=== PATIENT | male | born 1960 | race African-American/Black ===

== ENCOUNTER 2023-04-27 15:44 | Inpatient (IN) ==
[2023-04-27 16:51] LABS: BILIRUBIN,URINE 2+ (NEGATIVE); BLOOD/HEMOGLOBIN,URINE 5+ (NEGATIVE); GLUCOSE, URINE NEGATIVE (NEGATIVE); KETONES,URINE NEGATIVE (NEGATIVE); LEUKOCYTE ESTERASE ,URINE 3+ (NEGATIVE); NITRITES,URINE NEGATIVE (NEGATIVE); PROTEIN,URINE 4+ (NEGATIVE); UROBILINOGEN,URINE 4+ (NORMAL)
[2023-04-27 17:21] LABS: APPEARANCE,URINE TURBID (CLEAR); COLOR,URINE DARK YELLOW (YELLOW)
[2023-04-27 17:22] LABS: BACTERIA,URINE 3+ /HPF (NEGATIVE); HYALINE CASTS, URINE RARE /LPF (NEGATIVE); RBC,URINE TNTC /HPF (0-3); SQUAMOUS EPITHELIAL CELL,UR RARE /HPF (NEGATIVE)
--- NOTE | 2023-04-27 17:42 | DR.EXTPAIN ---
HPI Time seen Time Seen by Provider: 04/27/23 17:41 PCP Primary Care Physician: Dr. Pool Complaint/Symptoms Chief Complaint Doctor Comments: Patient has a h/o prostate Cancer. He has h/o supra pubic catheter malfunction 3 weeks ago and presented to the ED. The catheter was replaced and patient presented 2 weeks ago because it had dislodged. A malave catheter was placed and patient presented today for evaluation. He has multiple complaints.He states that he has chronic intermittent pain in his left wrist and forearm. Patient states that it is not hurting anymore. Patient states that he has generalized abdominal pain.Patient denies:fever,n,v,sob,headache,back pain. Chief Complaint:: Pt reports pain in his left wrist and forearm that started this morning. Denies injury to the area. Pain is described as constant aching in nature. COVID-19 Coronavirus risk:travel/contact w/high risk person: No Has patient experienced Coronavirus symptoms: No Source History Provided: Patient and EMS Mode of arrival Mode of Arrival: EMS Timing Onset of Chief Complaint: 04/27/23 PMH PMH Past Medical History: Yes Past Medical History: Asthma, CVA, Hypertension and Kidney Stones Past Medical History Comment: BPH Past Surgical History: Yes Surgical History: Appendectomy and Cholecystectomy Past Surgical History Comment: suprapubic catheter Family History History of Family Medical Conditions: Yes Family Medical History: Hypertension Social History Does patient currently use any type of tobacco product: No Have you used tobacco products in the last 12 months: No Type of Tobacco Use: None Does any household member use tobacco: No Alcohol Use: None Do you use any recreational Drugs:: No Lives With: Family Lives Where: Home Travel Risk Coronavirus risk:travel/contact w/high risk person: No Has patient experienced Coronavirus symptoms: No Infectious screening In the last 2 months have you had wt loss of >10#?: NO Have you had fever, night sweats or hemotysis?: No Have you traveled outside the country in the last 6 months?: No Isolation: Standard ROS Review of Systems Constitutional: No Symptoms Reported Eyes: No Symptoms Reported ENTM: No Symptoms Reported Respiratoy: No Symptoms Reported Cardiovascular: No Symptoms Reported Gastrointestinal/Abdominal: Abdominal Pain (generalized) Genitourinary: Hematuria Neurological: No Symptoms Reported Musculoskeletal: No Symptoms Reported Integumentary: No Symptoms Reported Hematologic/Lymphatic: No Symptoms Reported Endocrine: No Symptoms Reported Psychiatric: No Symptoms Reported All Other Systems: Reviewed and Negative PE Vital Signs Vitals: Vital Signs Temperature 98.0 F Pulse Rate 103 Respiratory Rate 20 Blood Pressure 148/55 O2 Sat by Pulse Oximetry 97 General Limitations: No Limitations General Appearance: Alert and In No Apparent Distress Head Head Exam: Normal Inspection Eyes Eye exam: Normal Appearance ENT ENT Exam: Normal Exam Neck Neck Exam: Normal Inspection Chest Chest Inspection: Normal Inspection Respiratory Respiratory Exam: Normal Lung Sounds Bilat Respiratory Exam: Bilateral: Clear to Auscultation Cardiovascular Cardiovascular Exam: Regular Rate and Normal Rhythm Abdominal Exam Abdominal Exam: Normal Inspection, Normal Bowel Sounds, Soft and Other (Malave catheter is intact no excoriation at penis,no edema,no erythema) Extremities Extremities Exam: Normal Inspection Back Back Exam: Normal Inspection Neurological Neurological Exam: Alert, Oriented X3 and CN II-XII Intact Psychiatric Psychiatric Exam: Normal Affect and Normal Mood Skin Skin Exam: Warm, Dry, Intact and Normal Color MDM Differential Diagnosis Differential Diagnosis: Other (UTI,Cystitis,electrolyte, disorder,JANE) COURSE Treatment Treatment: Patient was brought to an exam room and iv access was initaited. Patient's cath U/A revealed TNTC RBCs/TNTC WBCs. Zosyn 3.375mg iv was ordered. Discussed case with Dr Pool who has accepted patient to his service. ROR Labs Reviewed Laboratory Results Reviewed?: Yes 04/27/23 17:55 04/27/23 17:55 Laboratory: WBC 18.2 X10^3/uL (3.6-10.0) H 04/27/23 17:55 RBC 3.43 X10^6/uL (4.7-6.0) L 04/27/23 17:55 Hgb 9.2 g/dL (13.5-18.0) L 04/27/23 17:55 Hct 28.3 % (42.0-54.0) L 04/27/23 17:55 MCV 82.4 fL (80.0-100.0) 04/27/23 17:55 MCH 26.9 pg (27.0-34.0) L 04/27/23 17:55 MCHC 32.7 g/dL (33.0-35.0) L 04/27/23 17:55 RDW 16.9 % (11.6-16.5) H 04/27/23 17:55 Plt Count 245 X10^3/uL (150.0-450.0) 04/27/23 17:55 MPV 7.7 fL (7.4-11.0) 04/27/23 17:55 Neut % (Auto) 87.1 % (42.0-75.0) H 04/27/23 17:55 Lymph % (Auto) 5.3 % (21.0-51.0) L 04/27/23 17:55 [place] % (Auto) 7.2 % (0.0-13.0) 04/27/23 17:55 Eos % (Auto) 0.2 % (0.9-2.9) L 04/27/23 17:55 Baso % (Auto) 0.2 % (0.2-1.0) 04/27/23 17:55 Neut # (Auto) 15.8 x10^3/uL (2.2-4.8) H 04/27/23 17:55 Lymph # (Auto) 1.0 X10^3/uL (1.3-2.9) L 04/27/23 17:55 [place] # (Auto) 1.3 x10^3/uL (0.3-0.8) H 04/27/23 17:55 Eos # (Auto) 0.0 x10^3/uL (0.0-0.2) 04/27/23 17:55 Baso # (Auto) 0.0 X10^3/uL (0.0-0.1) 04/27/23 17:55 Absolute Nucleated RBC 0.2 /100WBC 04/27/23 17:55 Sodium 130 mmol/L (136-145) L 04/27/23 17:55 Corrected Sodium 131 mmol/L (136-145) L 04/27/23 17:55 Potassium 3.3 mmol/L (3.5-5.1) L 04/27/23 17:55 Chloride 97 mmol/L (98-107) L 04/27/23 17:55 Carbon Dioxide 27.0 mmol/L (21-32) 04/27/23 17:55 BUN 26 mg/dL (7-18) H 04/27/23 17:55 Creatinine 1.52 mg/dL (0.70-1.30) H 04/27/23 17:55 Est GFR (MDRD) Af Amer 60 (>60) 04/27/23 17:55 Est GFR (MDRD) Non-Af 50 (>60) L 04/27/23 17:55 Glucose 132 mg/dL (65-99) H 04/27/23 17:55 Lactic Acid 1.8 mmol/L (0.4-2.0) 04/27/23 17:55 Calcium 8.5 mg/dL (8.5-10.1) 04/27/23 17:55 Corrected Calcium 10.0 mg/dL (8.5-10.1) 04/27/23 17:55 Total Bilirubin 1.50 mg/dL (0.2-1.0) H 04/27/23 17:55 AST 43 Units/L (15-37) H 04/27/23 17:55 ALT 21 Units/L (12-78) 04/27/23 17:55 Alkaline Phosphatase 115 Units/L (46-116) 04/27/23 17:55 C-Reactive Protein 195.30 mg/L (0-3.0) H 04/27/23 17:55 Total Protein 8.1 g/dL (6.4-8.2) 04/27/23 17:55 Albumin 2.1 g/dL (3.4-5.0) L 04/27/23 17:55 Globulin 6.0 g/dL (2.5-4.5) H 04/27/23 17:55 Albumin/Globulin Ratio 0.4 Ratio (1.1-2.1) L 04/27/23 17:55 Specimen Type Catherized urine 04/27/23 16:18 Urine Color Dark yellow (YELLOW) 04/27/23 16:18 Urine Appearance Turbid (CLEAR) 04/27/23 16:18 Urine pH 5.0 (5.0 - 8.0) 04/27/23 16:18 Ur Specific [employer] [place] 1.020 (1.000-1.030) 04/27/23 16:18 Urine Protein 4+ (NEGATIVE) 04/27/23 16:18 Urine Glucose (UA) Negative (NEGATIVE) 04/27/23 16:18 Urine Ketones Negative (NEGATIVE) 04/27/23 16:18 Urine Blood 5+ (NEGATIVE) 04/27/23 16:18 Urine Nitrite Negative (NEGATIVE) 04/27/23 16:18 Urine Bilirubin 2+ (NEGATIVE) 04/27/23 16:18 Urine Urobilinogen 4+ (NORMAL) 04/27/23 16:18 Ur Leukocyte Esterase 3+ (NEGATIVE) 04/27/23 16:18 Urine RBC Tntc /HPF (0-3) A 04/27/23 16:18 Urine WBC Tntc /HPF (0-5) A 04/27/23 16:18 Ur Squamous Epith Cells Rare /HPF (NEGATIVE) 04/27/23 16:18 Amorphous Sediment 2+ /HPF (NEGATIVE) 04/27/23 16:18 Urine Bacteria 3+ /HPF (NEGATIVE) 04/27/23 16:18 Hyaline Casts Rare /LPF (NEGATIVE) 04/27/23 16:18 Urine Mucus Few /HPF (NEGATIVE) 04/27/23 16:18 Ur Culture Indicated? Yes/culture set up 04/27/23 16:18 Opioid Opioid Risk Tool Age (Samir box if 16-45): No History of Preadolescent Sexual Abuse: No Total: 0 Total Score Risk Category: Low Risk Copyright: Miles FLORES predicting aberrant behaviors Discharge Plan Diagnosis Discharge Problem: Cystitis, Leukocytosis, JANE (acute kidney injury) Discharge Plan Patient Disposition: 09 ADMITTED INPATIENT Condition: Stable Prescriptions: No Action amlodipine 10 mg tablet 10 mg PO QDAY 30 Days Qty: 30 2RF carvedilol 25 mg tablet 25 mg PO BID 30 Days Qty: 60 3RF clonidine HCl 0.1 mg tablet 0.1 mg PO BID 30 Days Qty: 60 3RF oxycodone-acetaminophen [Percocet] 10-325 mg tablet 1 tab PO TID MDD 3 PRN (Reason: pain) 30 Days Qty: 90 0RF pregabalin 150 mg capsule 150 mg PO BID 30 Days Qty: 60 0RF potassium chloride 40 mEq/15 mL liquid 40 meq PO QDAY Qty: 45 0RF Health Concerns: Post Hospitalization: new medications and changes needed to prevent readmission or further decline. Pt educated and given instructions on all concerns. Plan of Treatment: Continue with present treatment and follow up plan. Pt is to keep follow up appointment as instructed and take medications as ordered. Orders to Discharge Patient Discharge Orders: Transfer (Routine); Ordered 04/27/23 Ordered By: Amina Henning Follow ups/Referrals Follow ups/Referrals: Lonnie Pool [Primary Care Provider] - 3 days Instructions Stand Alone Forms: Post Hospital Follow Up Care
[2023-04-27 18:07] LABS: BASOPHILS % (AUTO) 0.2 % (0.2-1.0); EOSINOPHILS % (AUTO) 0.2 % (0.9-2.9); HEMATOCRIT 28.3 % (42.0-54.0); HEMOGLOBIN 9.2 g/dL (13.5-18.0); LYMPHOCYTES % (AUTO) 5.3 % (21.0-51.0); MEAN CORPUSCULAR HEMOGLOBIN 26.9 pg (27.0-34.0); MEAN CORPUSCULAR HGB CONC 32.7 g/dL (33.0-35.0); MEAN CORPUSCULAR VOLUME 82.4 fL (80.0-100.0); MEAN PLATELET VOLUME 7.7 fL (7.4-11.0); MONOCYTES # (AUTO) 1.3 x10^3/uL (0.3-0.8); MONOCYTES % (AUTO) 7.2 % (0.0-13.0); NEUTROPHILS # (AUTO) 15.8 x10^3/uL (2.2-4.8); NEUTROPHILS % (AUTO) 87.1 % (42.0-75.0); PLATELET COUNT 245 X10^3/uL (150.0-450.0); RED BLOOD COUNT 3.43 X10^6/uL (4.7-6.0); RED CELL DISTRIBUTION WIDTH 16.9 % (11.6-16.5); WHITE BLOOD COUNT 18.2 X10^3/uL (3.6-10.0)
[2023-04-27 18:17] LABS: ALBUMIN 2.1 g/dL (3.4-5.0); CALCIUM 8.5 mg/dL (8.5-10.1); CREATININE 1.52 mg/dL (0.70-1.30); POTASSIUM 3.3 mmol/L (3.5-5.1); TOTAL PROTEIN 8.1 g/dL (6.4-8.2)
[2023-04-27] MEDS ORDERED: ZOSYN VIAL 3.375 GRAMS IV ONE (18:38)
[2023-04-27] MEDS ORDERED: NS 100 ML IV 100 ML ONE (18:38)
[2023-04-27] MEDS: ZOSYN VIAL 3.375 GRAMS 3.375 G in NS 100 ML IV 100 ML IV SCH ×2 (18:45→21:35)
[2023-04-27] MEDS ORDERED: NS 1,000 ML IV 1,000 ML IV ONE (19:07)
[2023-04-27] MEDS ORDERED: NS 1,000 ML IV 1,000 ML ONE (19:17)
[2023-04-27] MEDS ORDERED: NS 1,000 ML IV 1,000 ML IV SCH (20:00)
[2023-04-27 20:29] VITALS: BMI 22.9
[2023-04-27] MEDS ORDERED: CONSULT PHARMACY - POTASSIUM & MAGNESIUM XX SCH (21:00)
[2023-04-27] MEDS: CATAPRES TAB 0.1 MG PO SCH (21:31)
[2023-04-27] MEDS: PERCOCET TAB 5/325 MG PO PRN (21:31)
[2023-04-27] MEDS: LYRICA CAP 150 mg PO SCH (21:32)
[2023-04-27] MEDS: COREG TAB 25 MG PO SCH (21:32)
[2023-04-27] MEDS: K-DUR TAB 20 MEQ PO SCH (21:39)
[2023-04-28] MEDS: K-DUR TAB 20 MEQ PO SCH (00:02)
[2023-04-28] MEDS: PERCOCET TAB 5/325 MG PO PRN (02:38)
[2023-04-28] MEDS: ZOSYN VIAL 3.375 GRAMS 3.375 G in NS 100 ML IV 100 ML IV SCH ×3 (05:27→21:07)
[2023-04-28 05:36] LABS: ALANINE AMINOTRANSFERASE 18 Units/L (12-78); ALBUMIN 1.8 g/dL (3.4-5.0); ALKALINE PHOSPHATASE 92 Units/L (46-116); ASPARTATE AMINO TRANSFERASE 30 Units/L (15-37); BLOOD UREA NITROGEN 25 mg/dL (7-18); CARBON DIOXIDE 25.3 mmol/L (21-32); CHLORIDE 98 mmol/L (98-107); COR CA(FOR HYPOALB) 9.8 mg/dL (8.5-10.1); CREATININE 1.45 mg/dL (0.70-1.30); GLUCOSE 110 mg/dL (65-99); MAGNESIUM 2.2 mg/dL (2.0-2.9); POTASSIUM 3.2 mmol/L (3.5-5.1); SODIUM 131 mmol/L (136-145); TOTAL PROTEIN 7.1 g/dL (6.4-8.2); eGFR NON BLACK RACES 52 (>60)
[2023-04-28 05:38] LABS: BASOPHILS % (AUTO) 0.2 % (0.2-1.0); EOSINOPHILS # (AUTO) 0.1 x10^3/uL (0.0-0.2); EOSINOPHILS % (AUTO) 0.4 % (0.9-2.9); HEMATOCRIT 25.2 % (42.0-54.0); HEMOGLOBIN 8.3 g/dL (13.5-18.0); LYMPHOCYTES # (AUTO) 1.4 X10^3/uL (1.3-2.9); LYMPHOCYTES % (AUTO) 9.4 % (21.0-51.0); MEAN CORPUSCULAR HEMOGLOBIN 27.2 pg (27.0-34.0); MEAN CORPUSCULAR HGB CONC 32.9 g/dL (33.0-35.0); MEAN CORPUSCULAR VOLUME 82.7 fL (80.0-100.0); MEAN PLATELET VOLUME 7.7 fL (7.4-11.0); MONOCYTES # (AUTO) 1.5 x10^3/uL (0.3-0.8); MONOCYTES % (AUTO) 9.9 % (0.0-13.0); NEUTROPHILS # (AUTO) 11.9 x10^3/uL (2.2-4.8); NEUTROPHILS % (AUTO) 80.1 % (42.0-75.0); PLATELET COUNT 199 X10^3/uL (150.0-450.0); RED BLOOD COUNT 3.05 X10^6/uL (4.7-6.0); WHITE BLOOD COUNT 14.9 X10^3/uL (3.6-10.0)
[2023-04-28] MEDS ORDERED: CONSULT PHARMACY - POTASSIUM & MAGNESIUM XX SCH ×2 (06:00→07:00)
[2023-04-28] MEDS: LYRICA CAP 150 mg PO SCH ×2 (08:52→21:07)
[2023-04-28] MEDS: CATAPRES TAB 0.1 MG PO SCH ×2 (08:52→21:30)
[2023-04-28] MEDS: NORVASC TAB 10 MG PO SCH (08:52)
[2023-04-28] MEDS: COREG TAB 25 MG PO SCH ×2 (08:52→21:30)
[2023-04-28] MEDS ORDERED: POTASSIUM CHLORIDE LIQ PO SCH (09:00)
[2023-04-28] MEDS ORDERED: K-DUR TAB 20 MEQ PO SCH (09:00)
[2023-04-28] MEDS: NS + KCL 20 MEQ/L 1,000 ML IV SCH (09:31)
[2023-04-29] MEDS: NS + KCL 20 MEQ/L 1,000 ML IV SCH ×2 (03:00→13:17)
[2023-04-29] MEDS: ZOSYN VIAL 3.375 GRAMS 3.375 G in NS 100 ML IV 100 ML IV SCH ×3 (04:59→21:19)
[2023-04-29] MEDS: PERCOCET TAB 5/325 MG PO PRN (05:00)
[2023-04-29 05:55] LABS: BASOPHILS % (AUTO) 0.2 % (0.2-1.0); EOSINOPHILS # (AUTO) 0.1 x10^3/uL (0.0-0.2); EOSINOPHILS % (AUTO) 0.4 % (0.9-2.9); HEMATOCRIT 23.1 % (42.0-54.0); HEMOGLOBIN 7.6 g/dL (13.5-18.0); LYMPHOCYTES # (AUTO) 1.4 X10^3/uL (1.3-2.9); LYMPHOCYTES % (AUTO) 9.9 % (21.0-51.0); MEAN CORPUSCULAR HEMOGLOBIN 27.2 pg (27.0-34.0); MEAN CORPUSCULAR HGB CONC 32.8 g/dL (33.0-35.0); MEAN CORPUSCULAR VOLUME 82.9 fL (80.0-100.0); MEAN PLATELET VOLUME 7.9 fL (7.4-11.0); MONOCYTES # (AUTO) 1.5 x10^3/uL (0.3-0.8); MONOCYTES % (AUTO) 10.7 % (0.0-13.0); NEUTROPHILS # (AUTO) 11.3 x10^3/uL (2.2-4.8); NEUTROPHILS % (AUTO) 78.8 % (42.0-75.0); PLATELET COUNT 229 X10^3/uL (150.0-450.0); RED BLOOD COUNT 2.79 X10^6/uL (4.7-6.0); RED CELL DISTRIBUTION WIDTH 17.1 % (11.6-16.5); WHITE BLOOD COUNT 14.3 X10^3/uL (3.6-10.0)
[2023-04-29 06:10] LABS: ALANINE AMINOTRANSFERASE 10 Units/L (12-78); ALBUMIN 1.5 g/dL (3.4-5.0); ALKALINE PHOSPHATASE 76 Units/L (46-116); ASPARTATE AMINO TRANSFERASE 21 Units/L (15-37); BLOOD UREA NITROGEN 15 mg/dL (7-18); CALCIUM 7.8 mg/dL (8.5-10.1); CARBON DIOXIDE 20.7 mmol/L (21-32); CHLORIDE 106 mmol/L (98-107); COR CA(FOR HYPOALB) 9.8 mg/dL (8.5-10.1); CREATININE 1.07 mg/dL (0.70-1.30); GLUCOSE 88 mg/dL (65-99); SODIUM 136 mmol/L (136-145); TOTAL PROTEIN 6.6 g/dL (6.4-8.2); eGFR NON BLACK RACES > 60 (>60)
--- NOTE | 2023-04-29 06:38 | DR.H&P ---
H&P History & Physical for Day of: H&P Date: 04/28/23 Chief Complaint Chief Complaint: Weakness Dysuria Allergies Allergies Allergy/AdvReac Type Severity Reaction Status Date / Time No Known Allergies Allergy Verified 03/28/23 21:27 History of Present Illness History of Present Illness: Patient is a 62-year-old male with a past medical history of CVA, neuropathy, prostate/penile cancer? with malave catheter presenting with weakness and dysuria for the past 2-3 days. Reports discoloration in urine in Malave bag. Denies fevers, chills. Labs/imaging: WBC 14.9, hemoglobin 8.3, platelets 199, sodium 131, potassium 3.2, creatinine 1.45, glucose 110, UA positive, urine/blood culture pending. Patient was admitted for acute cystitis. He is currently receiving IV fluids normal saline at 80 mL/h. IV antibiotics Zosyn. Will restart home medications. Otherwise continue with current treatment plan. Continue to closely monitor and follow-up labs/imaging. Past Medical History Past Medical History: Asthma, CVA, Hypertension and Kidney Stones Past Surgical History Surgical History: Appendectomy and Cholecystectomy Family History Family Medical History: Hypertension Social History Does patient currently use any type of tobacco product: No Have you used tobacco products in the last 12 months: No Type of Tobacco Use: None Does any household member use tobacco: No Alcohol Use: None Drug Use: None Labs 04/29/23 05:14 04/29/23 05:14 Labs: 04/27/23 17:55 Blood Blood Culture Gram Stain - Final 04/27/23 16:10 Blood Blood Culture Gram Stain - Final 04/27/23 16:18 Urine,Catheterized Urine Culture - Preliminary Laboratory WBC 14.3 X10^3/uL (3.6-10.0) H 04/29/23 05:14 RBC 2.79 X10^6/uL (4.7-6.0) L 04/29/23 05:14 Hgb 7.6 g/dL (13.5-18.0) L 04/29/23 05:14 Hct 23.1 % (42.0-54.0) L 04/29/23 05:14 MCV 82.9 fL (80.0-100.0) 04/29/23 05:14 MCH 27.2 pg (27.0-34.0) 04/29/23 05:14 MCHC 32.8 g/dL (33.0-35.0) L 04/29/23 05:14 RDW 17.1 % (11.6-16.5) H 04/29/23 05:14 Plt Count 229 X10^3/uL (150.0-450.0) 04/29/23 05:14 MPV 7.9 fL (7.4-11.0) 04/29/23 05:14 Neut % (Auto) 78.8 % (42.0-75.0) H 04/29/23 05:14 Lymph % (Auto) 9.9 % (21.0-51.0) L 04/29/23 05:14 [place] % (Auto) 10.7 % (0.0-13.0) 04/29/23 05:14 Eos % (Auto) 0.4 % (0.9-2.9) L 04/29/23 05:14 Baso % (Auto) 0.2 % (0.2-1.0) 04/29/23 05:14 Neut # (Auto) 11.3 x10^3/uL (2.2-4.8) H 04/29/23 05:14 Lymph # (Auto) 1.4 X10^3/uL (1.3-2.9) 04/29/23 05:14 [place] # (Auto) 1.5 x10^3/uL (0.3-0.8) H 04/29/23 05:14 Eos # (Auto) 0.1 x10^3/uL (0.0-0.2) 04/29/23 05:14 Baso # (Auto) 0.0 X10^3/uL (0.0-0.1) 04/29/23 05:14 Absolute Nucleated RBC 0.0 /100WBC 04/29/23 05:14 Sodium 136 mmol/L (136-145) 04/29/23 05:14 Corrected Sodium TNP 04/29/23 05:14 Potassium 4.0 mmol/L (3.5-5.1) 04/29/23 05:14 Chloride 106 mmol/L (98-107) 04/29/23 05:14 Carbon Dioxide 20.7 mmol/L (21-32) L 04/29/23 05:14 BUN 15 mg/dL (7-18) 04/29/23 05:14 Creatinine 1.07 mg/dL (0.70-1.30) 04/29/23 05:14 Est GFR (MDRD) Af Amer > 60 (>60) 04/29/23 05:14 Est GFR (MDRD) Non-Af > 60 (>60) 04/29/23 05:14 Glucose 88 mg/dL (65-99) 04/29/23 05:14 Lactic Acid 1.8 mmol/L (0.4-2.0) 04/27/23 17:55 Calcium 7.8 mg/dL (8.5-10.1) L 04/29/23 05:14 Corrected Calcium 9.8 mg/dL (8.5-10.1) 04/29/23 05:14 Magnesium 2.2 mg/dL (2.0-2.9) 04/28/23 04:55 Total Bilirubin 1.10 mg/dL (0.2-1.0) H 04/29/23 05:14 AST 21 Units/L (15-37) 04/29/23 05:14 ALT 10 Units/L (12-78) L 04/29/23 05:14 Alkaline Phosphatase 76 Units/L (46-116) 04/29/23 05:14 C-Reactive Protein 195.30 mg/L (0-3.0) H 04/27/23 17:55 Total Protein 6.6 g/dL (6.4-8.2) 04/29/23 05:14 Albumin 1.5 g/dL (3.4-5.0) L 04/29/23 05:14 Globulin 5.1 g/dL (2.5-4.5) H 04/29/23 05:14 Albumin/Globulin Ratio 0.3 Ratio (1.1-2.1) L 04/29/23 05:14 Specimen Type Catherized urine 04/27/23 16:18 Urine Color Dark yellow (YELLOW) 04/27/23 16:18 Urine Appearance Turbid (CLEAR) 04/27/23 16:18 Urine pH 5.0 (5.0 - 8.0) 04/27/23 16:18 Ur Specific [place] 1.020 (1.000-1.030) 04/27/23 16:18 Urine Protein 4+ (NEGATIVE) 04/27/23 16:18 Urine Glucose (UA) Negative (NEGATIVE) 04/27/23 16:18 Urine Ketones Negative (NEGATIVE) 04/27/23 16:18 Urine Blood 5+ (NEGATIVE) 04/27/23 16:18 Urine Nitrite Negative (NEGATIVE) 04/27/23 16:18 Urine Bilirubin 2+ (NEGATIVE) 04/27/23 16:18 Urine Urobilinogen 4+ (NORMAL) 04/27/23 16:18 Ur Leukocyte Esterase 3+ (NEGATIVE) 04/27/23 16:18 Urine RBC Tntc /HPF (0-3) A 04/27/23 16:18 Urine WBC Tntc /HPF (0-5) A 04/27/23 16:18 Ur Squamous Epith Cells Rare /HPF (NEGATIVE) 04/27/23 16:18 Amorphous Sediment 2+ /HPF (NEGATIVE) 04/27/23 16:18 Urine Bacteria 3+ /HPF (NEGATIVE) 04/27/23 16:18 Hyaline Casts Rare /LPF (NEGATIVE) 04/27/23 16:18 Urine Mucus Few /HPF (NEGATIVE) 04/27/23 16:18 Ur Culture Indicated? Yes/culture set up 04/27/23 16:18 Review of Systems Constitutional: Weakness Eyes: No Symptoms Reported ENT: No Symptoms Reported Respiratory: No Symptoms Reported Cardiovascular: No Symptoms Reported Gastrointestinal: No Symptoms Reported Genitourinary: Dysuria and Other (malave catheter) Musculoskeletal: No Symptoms Reported Skin: No Symptoms Reported Neurological: No Symptoms Reported Physical Exam Vital Signs: Vital Signs Temperature 98.1 F Temperature 98.7 F Pulse Rate [Left] 93 Pulse Rate [Left] 107 Respiratory Rate 20 Respiratory Rate 20 Respiratory Rate 20 Blood Pressure [Right Arm] 139/64 Blood Pressure [Right Arm] 127/58 O2 Sat by Pulse Oximetry 100 O2 Sat by Pulse Oximetry 100 Oriented: Normal Eyes: Normal Ear: Normal Nose: Normal Throat: Normal Respiratory: Clear Throughout Cardiovascular: Normal : Dysuria Auscultation: Bowel Sounds: Normal Palpation: Normal Tenderness: Normal Skin: Normal Musculoskeletal: Normal Psychiatric: Normal Mood Description: Calm and Appropriate Affect: Normal Speech Pattern: Clear and Appropriate Assessment/Plan (1) Cystitis: Narrative Support Text: IV Zosyn Urine culture pending Status: Acute (2) Acute urinary retention: Status: Acute (3) Leukocytosis: Status: Acute Review H&P Reviewed: Yes Patient was examined?: Yes
[2023-04-29] MEDS: LYRICA CAP 150 mg PO SCH ×2 (08:50→20:19)
[2023-04-29] MEDS: COREG TAB 25 MG PO SCH (08:51)
[2023-04-29] MEDS: CATAPRES TAB 0.1 MG PO SCH (08:51)
[2023-04-29] MEDS: NORVASC TAB 10 MG PO SCH (08:51)
[2023-04-29] MEDS ORDERED: ATIVAN INJ 2 MG VIAL IVP ONE (17:10)
[2023-04-29] MEDS ORDERED: ATIVAN INJ 2 MG VIAL ONE (17:19)
[2023-04-29] MEDS ORDERED: DILAUDID INJ ONE (17:23)
[2023-04-29 18:04] LABS: BILIRUBIN,URINE NEGATIVE (NEGATIVE); BLOOD/HEMOGLOBIN,URINE 5+ (NEGATIVE); GLUCOSE, URINE NEGATIVE (NEGATIVE); KETONES,URINE NEGATIVE (NEGATIVE); LEUKOCYTE ESTERASE ,URINE 3+ (NEGATIVE); NITRITES,URINE NEGATIVE (NEGATIVE); PROTEIN,URINE 3+ (NEGATIVE); UROBILINOGEN,URINE 3+ (NORMAL)
[2023-04-29 18:29] LABS: APPEARANCE,URINE CLOUDY (CLEAR); COLOR,URINE BLOODY (YELLOW)
[2023-04-29 18:30] LABS: BACTERIA,URINE NEGATIVE /HPF (NEGATIVE); RBC,URINE TNTC /HPF (0-3); SQUAMOUS EPITHELIAL CELL,UR NEGATIVE /HPF (NEGATIVE); URIC ACID CRYSTALS,URINE MODERATE /HPF (NEGATIVE)
[2023-04-30] MEDS: CATAPRES TAB 0.1 MG PO SCH ×3 (00:02→20:03)
[2023-04-30] MEDS: COREG TAB 25 MG PO SCH ×3 (00:03→20:04)
[2023-04-30] MEDS: ZOSYN VIAL 3.375 GRAMS 3.375 G in NS 100 ML IV 100 ML IV SCH (05:00)
[2023-04-30] MEDS: NS + KCL 20 MEQ/L 1,000 ML IV SCH ×2 (05:01→20:03)
[2023-04-30 06:18] LABS: BASOPHILS # (AUTO) 0.1 X10^3/uL (0.0-0.1); BASOPHILS % (AUTO) 0.6 % (0.2-1.0); EOSINOPHILS # (AUTO) 0.1 x10^3/uL (0.0-0.2); EOSINOPHILS % (AUTO) 0.4 % (0.9-2.9); HEMATOCRIT 24.2 % (42.0-54.0); HEMOGLOBIN 7.9 g/dL (13.5-18.0); LYMPHOCYTES # (AUTO) 1.3 X10^3/uL (1.3-2.9); LYMPHOCYTES % (AUTO) 9.7 % (21.0-51.0); MEAN CORPUSCULAR HEMOGLOBIN 27.4 pg (27.0-34.0); MEAN CORPUSCULAR HGB CONC 32.8 g/dL (33.0-35.0); MEAN CORPUSCULAR VOLUME 83.5 fL (80.0-100.0); MEAN PLATELET VOLUME 7.9 fL (7.4-11.0); MONOCYTES # (AUTO) 1.1 x10^3/uL (0.3-0.8); NEUTROPHILS # (AUTO) 10.8 x10^3/uL (2.2-4.8); NEUTROPHILS % (AUTO) 81.3 % (42.0-75.0); PLATELET COUNT 225 X10^3/uL (150.0-450.0); RED CELL DISTRIBUTION WIDTH 17.8 % (11.6-16.5); WHITE BLOOD COUNT 13.4 X10^3/uL (3.6-10.0)
[2023-04-30 06:42] LABS: ALANINE AMINOTRANSFERASE 15 Units/L (12-78); ALBUMIN 1.6 g/dL (3.4-5.0); ALKALINE PHOSPHATASE 127 Units/L (46-116); ASPARTATE AMINO TRANSFERASE 22 Units/L (15-37); BLOOD UREA NITROGEN 10 mg/dL (7-18); CALCIUM 8.1 mg/dL (8.5-10.1); CARBON DIOXIDE 21.2 mmol/L (21-32); CHLORIDE 107 mmol/L (98-107); CREATININE 1.15 mg/dL (0.70-1.30); GLUCOSE 107 mg/dL (65-99); SODIUM 136 mmol/L (136-145); TOTAL PROTEIN 6.8 g/dL (6.4-8.2); eGFR NON BLACK RACES > 60 (>60)
[2023-04-30] MEDS ORDERED: PHARMACY CONSULT - VANCOMYCIN XX SCH ×2 (09:00)
[2023-04-30] MEDS: LYRICA CAP 150 mg PO SCH ×2 (09:14→20:03)
[2023-04-30] MEDS: NORVASC TAB 10 MG PO SCH (09:15)
[2023-04-30] MEDS: VANCOMYCIN IV *PREMIX 1 G/200 ML BAG 1 G/200 ML PIGGYBACK IV SCH ×2 (09:15→20:03)
--- NOTE | 2023-04-30 16:42 | PCM.PROG ---
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 This morning he is resting comfortably in bed. No acute events overnight. Labs/imaging: WBC 14.3, hemoglobin 7.6, platelets 229, sodium 136, potassium 4.0, creatinine 1.07, glucose 88, Urine culture no growth to date, Blood culture positive for gram positive cocci. Will continue IV fluids normal saline at 80 mL/h. IV antibiotics Zosyn. Home medications have been resumed. Follow up blood cultures. Otherwise continue with current treatment plan. Continue to closely monitor and follow-up labs/imaging. Past Medical Family Social History Allergies: Allergies No Known Allergies Allergy (Verified 03/28/23 21:27) Review of Systems ROS changes noted: see HPI Vital Signs and I&O's Vital Signs: Vital Signs Temperature 99.1 F Pulse Rate [Left] 95 Respiratory Rate 20 Blood Pressure [Right Arm] 132/59 O2 Sat by Pulse Oximetry 99 Intake and Output: Intake & Output 04/27/23 04/28/23 04/29/23 04/30/23 23:59 23:59 23:59 23:59 Intake Total 220 / 220 172 / 172 4225 / 4225 220 / 220 Output Total 100 / 100 400 / 400 110 / 110 350 / 350 Balance 120 / 120 -228 / -228 4115 / 4115 -130 / -130 Physical Exam Oriented: Normal Eyes: Normal Ear: Normal Nose: Normal Throat: Normal Respiratory: Normal Cardiovascular: Normal : Dysuria Auscultation: Bowel Sounds: Normal Tenderness: Normal Skin: Normal Musculoskeletal: Normal Psychiatric: Normal Mood Description: Calm and Appropriate Affect: Normal Speech Pattern: Clear and Appropriate Laboratory and Diagnostics 04/30/23 05:05 04/30/23 05:05 Labs: 04/27/23 17:55 Blood Blood Culture Gram Stain - Final 04/27/23 17:55 Blood Blood Culture - Final Staphylococcus Lugdunesis Mrs 04/27/23 16:10 Blood Blood Culture Gram Stain - Final 04/27/23 16:10 Blood Blood Culture - Final Staphylococcus Lugdunesis Mrs 04/27/23 16:18 Urine,Catheterized Urine Culture - Final Laboratory WBC 13.4 X10^3/uL (3.6-10.0) H 04/30/23 05:05 RBC 2.90 X10^6/uL (4.7-6.0) L 04/30/23 05:05 Hgb 7.9 g/dL (13.5-18.0) L 04/30/23 05:05 Hct 24.2 % (42.0-54.0) L 04/30/23 05:05 MCV 83.5 fL (80.0-100.0) 04/30/23 05:05 MCH 27.4 pg (27.0-34.0) 04/30/23 05:05 MCHC 32.8 g/dL (33.0-35.0) L 04/30/23 05:05 RDW 17.8 % (11.6-16.5) H 04/30/23 05:05 Plt Count 225 X10^3/uL (150.0-450.0) 04/30/23 05:05 MPV 7.9 fL (7.4-11.0) 04/30/23 05:05 Neut % (Auto) 81.3 % (42.0-75.0) H 04/30/23 05:05 Lymph % (Auto) 9.7 % (21.0-51.0) L 04/30/23 05:05 [place] % (Auto) 8.0 % (0.0-13.0) 04/30/23 05:05 Eos % (Auto) 0.4 % (0.9-2.9) L 04/30/23 05:05 Baso % (Auto) 0.6 % (0.2-1.0) 04/30/23 05:05 Neut # (Auto) 10.8 x10^3/uL (2.2-4.8) H 04/30/23 05:05 Lymph # (Auto) 1.3 X10^3/uL (1.3-2.9) 04/30/23 05:05 [place] # (Auto) 1.1 x10^3/uL (0.3-0.8) H 04/30/23 05:05 Eos # (Auto) 0.1 x10^3/uL (0.0-0.2) 04/30/23 05:05 Baso # (Auto) 0.1 X10^3/uL (0.0-0.1) 04/30/23 05:05 Absolute Nucleated RBC 0.0 /100WBC 04/30/23 05:05 Sodium 136 mmol/L (136-145) 04/30/23 05:05 Corrected Sodium TNP 04/30/23 05:05 Potassium 4.0 mmol/L (3.5-5.1) 04/30/23 05:05 Chloride 107 mmol/L (98-107) 04/30/23 05:05 Carbon Dioxide 21.2 mmol/L (21-32) 04/30/23 05:05 BUN 10 mg/dL (7-18) 04/30/23 05:05 Creatinine 1.15 mg/dL (0.70-1.30) 04/30/23 05:05 Est GFR (MDRD) Af Amer > 60 (>60) 04/30/23 05:05 Est GFR (MDRD) Non-Af > 60 (>60) 04/30/23 05:05 Glucose 107 mg/dL (65-99) H 04/30/23 05:05 Lactic Acid 1.8 mmol/L (0.4-2.0) 04/27/23 17:55 Calcium 8.1 mg/dL (8.5-10.1) L 04/30/23 05:05 Corrected Calcium 10.0 mg/dL (8.5-10.1) 04/30/23 05:05 Magnesium 2.2 mg/dL (2.0-2.9) 04/28/23 04:55 Total Bilirubin 0.80 mg/dL (0.2-1.0) 04/30/23 05:05 AST 22 Units/L (15-37) 04/30/23 05:05 ALT 15 Units/L (12-78) 04/30/23 05:05 Alkaline Phosphatase 127 Units/L (46-116) H 04/30/23 05:05 C-Reactive Protein 195.30 mg/L (0-3.0) H 04/27/23 17:55 Total Protein 6.8 g/dL (6.4-8.2) 04/30/23 05:05 Albumin 1.6 g/dL (3.4-5.0) L 04/30/23 05:05 Globulin 5.2 g/dL (2.5-4.5) H 04/30/23 05:05 Albumin/Globulin Ratio 0.3 Ratio (1.1-2.1) L 04/30/23 05:05 Specimen Type Catherized urine 04/29/23 17:30 Urine Color Bloody (YELLOW) 04/29/23 17:30 Urine Appearance Cloudy (CLEAR) 04/29/23 17:30 Urine pH 5.0 (5.0 - 8.0) 04/29/23 17:30 Ur Specific [place] 1.020 (1.000-1.030) 04/29/23 17:30 Urine Protein 3+ (NEGATIVE) 04/29/23 17:30 Urine Glucose (UA) Negative (NEGATIVE) 04/29/23 17:30 Urine Ketones Negative (NEGATIVE) 04/29/23 17:30 Urine Blood 5+ (NEGATIVE) 04/29/23 17:30 Urine Nitrite Negative (NEGATIVE) 04/29/23 17:30 Urine Bilirubin Negative (NEGATIVE) 04/29/23 17:30 Urine Urobilinogen 3+ (NORMAL) 04/29/23 17:30 Ur Leukocyte Esterase 3+ (NEGATIVE) 04/29/23 17:30 Urine RBC Tntc /HPF (0-3) A 04/29/23 17:30 Urine WBC 3-5 /HPF (0-5) 04/29/23 17:30 Ur Squamous Epith Cells Negative /HPF (NEGATIVE) 04/29/23 17:30 Uric Acid Crystals Moderate /HPF (NEGATIVE) 04/29/23 17:30 Amorphous Sediment 1+ /HPF (NEGATIVE) 04/29/23 17:30 Urine Bacteria Negative /HPF (NEGATIVE) 04/29/23 17:30 Hyaline Casts Rare /LPF (NEGATIVE) 04/27/23 16:18 Urine Mucus Few /HPF (NEGATIVE) 04/27/23 16:18 Ur Culture Indicated? No/not indicated 04/29/23 17:30 Plan (1) Cystitis: Status: Acute (2) Acute urinary retention: Status: Acute (3) Leukocytosis: Status: Acute
--- NOTE | 2023-04-30 17:05 | PCM.PROG ---
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 This morning was observed at bedside. He was eating breakfast. No acute events overnight. Labs/imaging: WBC 13.4, hemoglobin 7.9, platelets 225, sodium 136, potassium 4.0, creatinine 1.15, glucose 107, Urine culture no growth to date, Blood culture positive for Will continue IV fluids normal saline at 80 mL/h. IV antibiotics Zosyn. Home medications have been resumed. Follow up blood cultures. Otherwise continue with current treatment plan. Continue to closely monitor and follow-up labs/imaging. Past Medical Family Social History Allergies: Allergies No Known Allergies Allergy (Verified 03/28/23 21:27) Vital Signs and I&O's Intake and Output: Intake & Output 04/27/23 04/28/23 04/29/23 04/30/23 23:59 23:59 23:59 23:59 Intake Total 220 / 220 172 / 172 4225 / 4225 640 / 640 Output Total 100 / 100 400 / 400 110 / 110 750 / 750 Balance 120 / 120 -228 / -228 4115 / 4115 -110 / -110 Physical Exam Oriented: Normal Eyes: Normal Ear: Normal Nose: Normal Throat: Normal Respiratory: Normal Cardiovascular: Normal : Dysuria Auscultation: Bowel Sounds: Normal Tenderness: Normal Skin: Normal Musculoskeletal: Normal Psychiatric: Normal Mood Description: Calm and Appropriate Affect: Normal Speech Pattern: Clear and Appropriate Laboratory and Diagnostics 04/30/23 05:05 04/30/23 05:05 Labs: 04/27/23 17:55 Blood Blood Culture Gram Stain - Final 04/27/23 17:55 Blood Blood Culture - Final Staphylococcus Lugdunesis Mrs 04/27/23 16:10 Blood Blood Culture Gram Stain - Final 04/27/23 16:10 Blood Blood Culture - Final Staphylococcus Lugdunesis Mrs 04/27/23 16:18 Urine,Catheterized Urine Culture - Final Laboratory WBC 13.4 X10^3/uL (3.6-10.0) H 04/30/23 05:05 RBC 2.90 X10^6/uL (4.7-6.0) L 04/30/23 05:05 Hgb 7.9 g/dL (13.5-18.0) L 04/30/23 05:05 Hct 24.2 % (42.0-54.0) L 04/30/23 05:05 MCV 83.5 fL (80.0-100.0) 04/30/23 05:05 MCH 27.4 pg (27.0-34.0) 04/30/23 05:05 MCHC 32.8 g/dL (33.0-35.0) L 04/30/23 05:05 RDW 17.8 % (11.6-16.5) H 04/30/23 05:05 Plt Count 225 X10^3/uL (150.0-450.0) 04/30/23 05:05 MPV 7.9 fL (7.4-11.0) 04/30/23 05:05 Neut % (Auto) 81.3 % (42.0-75.0) H 04/30/23 05:05 Lymph % (Auto) 9.7 % (21.0-51.0) L 04/30/23 05:05 [place] % (Auto) 8.0 % (0.0-13.0) 04/30/23 05:05 Eos % (Auto) 0.4 % (0.9-2.9) L 04/30/23 05:05 Baso % (Auto) 0.6 % (0.2-1.0) 04/30/23 05:05 Neut # (Auto) 10.8 x10^3/uL (2.2-4.8) H 04/30/23 05:05 Lymph # (Auto) 1.3 X10^3/uL (1.3-2.9) 04/30/23 05:05 [place] # (Auto) 1.1 x10^3/uL (0.3-0.8) H 04/30/23 05:05 Eos # (Auto) 0.1 x10^3/uL (0.0-0.2) 04/30/23 05:05 Baso # (Auto) 0.1 X10^3/uL (0.0-0.1) 04/30/23 05:05 Absolute Nucleated RBC 0.0 /100WBC 04/30/23 05:05 Sodium 136 mmol/L (136-145) 04/30/23 05:05 Corrected Sodium TNP 04/30/23 05:05 Potassium 4.0 mmol/L (3.5-5.1) 04/30/23 05:05 Chloride 107 mmol/L (98-107) 04/30/23 05:05 Carbon Dioxide 21.2 mmol/L (21-32) 04/30/23 05:05 BUN 10 mg/dL (7-18) 04/30/23 05:05 Creatinine 1.15 mg/dL (0.70-1.30) 04/30/23 05:05 Est GFR (MDRD) Af Amer > 60 (>60) 04/30/23 05:05 Est GFR (MDRD) Non-Af > 60 (>60) 04/30/23 05:05 Glucose 107 mg/dL (65-99) H 04/30/23 05:05 Lactic Acid 1.8 mmol/L (0.4-2.0) 04/27/23 17:55 Calcium 8.1 mg/dL (8.5-10.1) L 04/30/23 05:05 Corrected Calcium 10.0 mg/dL (8.5-10.1) 04/30/23 05:05 Magnesium 2.2 mg/dL (2.0-2.9) 04/28/23 04:55 Total Bilirubin 0.80 mg/dL (0.2-1.0) 04/30/23 05:05 AST 22 Units/L (15-37) 04/30/23 05:05 ALT 15 Units/L (12-78) 04/30/23 05:05 Alkaline Phosphatase 127 Units/L (46-116) H 04/30/23 05:05 C-Reactive Protein 195.30 mg/L (0-3.0) H 04/27/23 17:55 Total Protein 6.8 g/dL (6.4-8.2) 04/30/23 05:05 Albumin 1.6 g/dL (3.4-5.0) L 04/30/23 05:05 Globulin 5.2 g/dL (2.5-4.5) H 04/30/23 05:05 Albumin/Globulin Ratio 0.3 Ratio (1.1-2.1) L 04/30/23 05:05 Specimen Type Catherized urine 04/29/23 17:30 Urine Color Bloody (YELLOW) 04/29/23 17:30 Urine Appearance Cloudy (CLEAR) 04/29/23 17:30 Urine pH 5.0 (5.0 - 8.0) 04/29/23 17:30 Ur Specific [place] 1.020 (1.000-1.030) 04/29/23 17:30 Urine Protein 3+ (NEGATIVE) 04/29/23 17:30 Urine Glucose (UA) Negative (NEGATIVE) 04/29/23 17:30 Urine Ketones Negative (NEGATIVE) 04/29/23 17:30 Urine Blood 5+ (NEGATIVE) 04/29/23 17: Urine Nitrite Negative (NEGATIVE) 04/29/23 17:30 Urine Bilirubin Negative (NEGATIVE) 04/29/23 17:30 Urine Urobilinogen 3+ (NORMAL) 04/29/23 17:30 Ur Leukocyte Esterase 3+ (NEGATIVE) 04/29/23 17:30 Urine RBC Tntc /HPF (0-3) A 04/29/23 17:30 Urine WBC 3-5 /HPF (0-5) 04/29/23 17:30 Ur Squamous Epith Cells Negative /HPF (NEGATIVE) 04/29/23 17:30 Uric Acid Crystals Moderate /HPF (NEGATIVE) 04/29/23 17:30 Amorphous Sediment 1+ /HPF (NEGATIVE) 04/29/23 17:30 Urine Bacteria Negative /HPF (NEGATIVE) 04/29/23 17:30 Hyaline Casts Rare /LPF (NEGATIVE) 04/27/23 16:18 Urine Mucus Few /HPF (NEGATIVE) 04/27/23 16:18 Ur Culture Indicated? No/not indicated 04/29/23 17:30 Plan (1) Cystitis: Status: Acute (2) Acute urinary retention: Status: Acute (3) Leukocytosis: Status: Acute
[2023-05-01] MEDS: NS + KCL 20 MEQ/L 1,000 ML IV SCH ×2 (02:15→13:03)
[2023-05-01 06:55] LABS: BASOPHILS % (AUTO) 0.4 % (0.2-1.0); EOSINOPHILS # (AUTO) 0.1 x10^3/uL (0.0-0.2); EOSINOPHILS % (AUTO) 0.7 % (0.9-2.9); HEMATOCRIT 21.9 % (42.0-54.0); HEMOGLOBIN 7.1 g/dL (13.5-18.0); LYMPHOCYTES # (AUTO) 1.5 X10^3/uL (1.3-2.9); LYMPHOCYTES % (AUTO) 13.2 % (21.0-51.0); MEAN CORPUSCULAR HEMOGLOBIN 27.5 pg (27.0-34.0); MEAN CORPUSCULAR HGB CONC 32.2 g/dL (33.0-35.0); MEAN CORPUSCULAR VOLUME 85.3 fL (80.0-100.0); MEAN PLATELET VOLUME 7.9 fL (7.4-11.0); MONOCYTES % (AUTO) 8.9 % (0.0-13.0); NEUTROPHILS # (AUTO) 8.8 x10^3/uL (2.2-4.8); NEUTROPHILS % (AUTO) 76.8 % (42.0-75.0); PLATELET COUNT 198 X10^3/uL (150.0-450.0); RED BLOOD COUNT 2.57 X10^6/uL (4.7-6.0); RED CELL DISTRIBUTION WIDTH 18.1 % (11.6-16.5); WHITE BLOOD COUNT 11.4 X10^3/uL (3.6-10.0)
[2023-05-01 07:05] LABS: ALANINE AMINOTRANSFERASE 12 Units/L (12-78); ALBUMIN 1.4 g/dL (3.4-5.0); ALKALINE PHOSPHATASE 93 Units/L (46-116); ASPARTATE AMINO TRANSFERASE 20 Units/L (15-37); BLOOD UREA NITROGEN 7 mg/dL (7-18); CALCIUM 7.8 mg/dL (8.5-10.1); CHLORIDE 107 mmol/L (98-107); COR CA(FOR HYPOALB) 9.9 mg/dL (8.5-10.1); CREATININE 0.86 mg/dL (0.70-1.30); GLUCOSE 79 mg/dL (65-99); POTASSIUM 4.3 mmol/L (3.5-5.1); SODIUM 134 mmol/L (136-145); eGFR NON BLACK RACES > 60 (>60)
[2023-05-01] MEDS: VANCOMYCIN IV *PREMIX 1 G/200 ML BAG 1 G/200 ML PIGGYBACK IV SCH ×2 (09:21→21:15)
[2023-05-01] MEDS: CATAPRES TAB 0.1 MG PO SCH ×3 (09:21→21:17)
[2023-05-01] MEDS: COREG TAB 25 MG PO SCH ×3 (09:21→21:17)
[2023-05-01] MEDS: NORVASC TAB 10 MG PO SCH (09:21)
[2023-05-01] MEDS: LYRICA CAP 150 mg PO SCH ×2 (09:21→20:28)
[2023-05-01] MEDS: NS 1,000 ML IV 1,000 ML IV SCH (16:08)
[2023-05-01] MEDS: PERCOCET TAB 5/325 MG PO PRN (17:00)
[2023-05-01] MEDS ORDERED: PHARMACY COMMENT IV ONE (20:30)
[2023-05-02] MEDS: NS 1,000 ML IV 1,000 ML IV SCH ×2 (04:28→05:04)
[2023-05-02 04:34] VITALS: BP 166/70; PULSE 88; TEMP 97.9; O2SAT 99
[2023-05-02] MEDS: PERCOCET TAB 5/325 MG PO PRN (05:05)
[2023-05-02 06:01] VITALS: RESP 18
[2023-05-02 06:18] LABS: BASOPHILS % (AUTO) 0.4 % (0.2-1.0); EOSINOPHILS # (AUTO) 0.1 x10^3/uL (0.0-0.2); EOSINOPHILS % (AUTO) 0.9 % (0.9-2.9); HEMATOCRIT 21.9 % (42.0-54.0); HEMOGLOBIN 7.3 g/dL (13.5-18.0); LYMPHOCYTES # (AUTO) 1.4 X10^3/uL (1.3-2.9); LYMPHOCYTES % (AUTO) 12.1 % (21.0-51.0); MEAN CORPUSCULAR HEMOGLOBIN 28.2 pg (27.0-34.0); MEAN CORPUSCULAR HGB CONC 33.2 g/dL (33.0-35.0); MEAN CORPUSCULAR VOLUME 84.8 fL (80.0-100.0); MEAN PLATELET VOLUME 7.9 fL (7.4-11.0); MONOCYTES # (AUTO) 0.9 x10^3/uL (0.3-0.8); MONOCYTES % (AUTO) 8.1 % (0.0-13.0); NEUTROPHILS # (AUTO) 9.2 x10^3/uL (2.2-4.8); NEUTROPHILS % (AUTO) 78.5 % (42.0-75.0); PLATELET COUNT 206 X10^3/uL (150.0-450.0); RED BLOOD COUNT 2.59 X10^6/uL (4.7-6.0); RED CELL DISTRIBUTION WIDTH 18.3 % (11.6-16.5); WHITE BLOOD COUNT 11.7 X10^3/uL (3.6-10.0)
[2023-05-02 06:37] LABS: ALANINE AMINOTRANSFERASE 14 Units/L (12-78); ALBUMIN 1.4 g/dL (3.4-5.0); ALKALINE PHOSPHATASE 81 Units/L (46-116); ASPARTATE AMINO TRANSFERASE 18 Units/L (15-37); BLOOD UREA NITROGEN 7 mg/dL (7-18); CALCIUM 7.9 mg/dL (8.5-10.1); CARBON DIOXIDE 19.4 mmol/L (21-32); CHLORIDE 107 mmol/L (98-107); CREATININE 0.85 mg/dL (0.70-1.30); GLUCOSE 98 mg/dL (65-99); MAGNESIUM 1.9 mg/dL (2.0-2.9); POTASSIUM 4.2 mmol/L (3.5-5.1); SODIUM 134 mmol/L (136-145); TOTAL PROTEIN 6.1 g/dL (6.4-8.2); eGFR NON BLACK RACES > 60 (>60)
[2023-05-02] MEDS ORDERED: CONSULT PHARMACY - POTASSIUM & MAGNESIUM XX SCH (08:00)
[2023-05-02] MEDS ORDERED: MAG-OX TAB PO ONE (09:00)
[2023-05-03] MEDS ORDERED: PHARMACY COMMENT IV ONE (08:30)
--- NOTE | 2023-05-03 15:09 | PCM.PROG ---
Progress Note Progress Note for Day of Date of Exam: 05/01/23 Subjective Subjective: This is Dr. Morales covering for Dr. Pool patient Germán Trimble on , 01 May 2023. The patient is a 62-year-old male with a past medical history of CVA, neuropathy, and squamous cell carcinoma of the penis causing obstructive uropathy has a Yun catheter, admitted for bacteremia. This morning was observed at bedside. I reviewed the patient's echocardiogram that he had the previous day and it shows a 1.2 cm x 0.8 cm aortic valve vegetation. I discussed this with hotel maintenance worker, Dr. Rodríguez and he suggest that the patient be sent to a tertiary care facility so we can get cardiovascular and thoracic surgery involved for surgical intervention of this aortic vegetation. He stated that the size of this makes it high risk for breaking off and possibly causing the patient to have a stroke. I discussed this with the patient and he is agreeable to be transferred to [facility] so I will start working on that today. Currently, the patient has no new complaints and is doing well. Continue current treatment. Past Medical Family Social History Allergies: Allergies No Known Allergies Allergy (Verified 03/28/23 21:27) Review of Systems ROS: No change since H&P Vital Signs and I&O's Intake and Output: Intake & Output 05/01/23 05/02/23 05/03/23 05/04/23 11:59 11:59 11:59 11:59 Intake Total 3317 / 3317 2484 / 2484 Output Total 900 / 900 600 / 600 Balance 2417 / 2417 1884 / 1884 Physical Exam Oriented: Normal Eyes: Normal Ear: Normal Nose: Normal Throat: Normal Respiratory: Normal Cardiovascular: Normal : Dysuria Auscultation: Bowel Sounds: Normal Tenderness: Normal Skin: Normal Musculoskeletal: Normal Psychiatric: Normal Mood Description: Calm and Appropriate Affect: Normal Speech Pattern: Clear and Appropriate Laboratory and Diagnostics 05/02/23 05:34 05/02/23 05:34 Labs: 04/30/23 08:55 Blood Blood Culture Gram Stain - Final 04/30/23 08:55 Blood Blood Culture - Preliminary 04/30/23 08:46 Blood Blood Culture Gram Stain - Final 04/30/23 08:46 Blood Blood Culture - Final Staphylococcus Lugdunesis Mrs 04/27/23 17:55 Blood Blood Culture Gram Stain - Final 04/27/23 17:55 Blood Blood Culture - Final Staphylococcus Lugdunesis Mrs 04/27/23 16:10 Blood Blood Culture Gram Stain - Final 04/27/23 16:10 Blood Blood Culture - Final Staphylococcus Lugdunesis Mrs 04/27/23 16:18 Urine,Catheterized Urine Culture - Final Laboratory WBC 11.7 X10^3/uL (3.6-10.0) H 05/02/23 05:34 RBC 2.59 X10^6/uL (4.7-6.0) L 05/02/23 05:34 Hgb 7.3 g/dL (13.5-18.0) L 05/02/23 05:34 Hct 21.9 % (42.0-54.0) L 05/02/23 05:34 MCV 84.8 fL (80.0-100.0) 05/02/23 05:34 MCH 28.2 pg (27.0-34.0) 05/02/23 05:34 MCHC 33.2 g/dL (33.0-35.0) 05/02/23 05:34 RDW 18.3 % (11.6-16.5) H 05/02/23 05:34 Plt Count 206 X10^3/uL (150.0-450.0) 05/02/23 05:34 MPV 7.9 fL (7.4-11.0) 05/02/23 05:34 Neut % (Auto) 78.5 % (42.0-75.0) H 05/02/23 05:34 Lymph % (Auto) 12.1 % (21.0-51.0) L 05/02/23 05:34 [place] % (Auto) 8.1 % (0.0-13.0) 05/02/23 05:34 Eos % (Auto) 0.9 % (0.9-2.9) 05/02/23 05:34 Baso % (Auto) 0.4 % (0.2-1.0) 05/02/23 05:34 Neut # (Auto) 9.2 x10^3/uL (2.2-4.8) H 05/02/23 05:34 Lymph # (Auto) 1.4 X10^3/uL (1.3-2.9) 05/02/23 05:34 [place] # (Auto) 0.9 x10^3/uL (0.3-0.8) H 05/02/23 05:34 Eos # (Auto) 0.1 x10^3/uL (0.0-0.2) 05/02/23 05:34 Baso # (Auto) 0.0 X10^3/uL (0.0-0.1) 05/02/23 05:34 Absolute Nucleated RBC 0.1 /100WBC 05/02/23 05:34 Sodium 134 mmol/L (136-145) L 05/02/23 05:34 Corrected Sodium TNP 05/02/23 05:34 Potassium 4.2 mmol/L (3.5-5.1) 05/02/23 05:34 Chloride 107 mmol/L (98-107) 05/02/23 05:34 Carbon Dioxide 19.4 mmol/L (21-32) L 05/02/23 05:34 BUN 7 mg/dL (7-18) 05/02/23 05:34 Creatinine 0.85 mg/dL (0.70-1.30) 05/02/23 05:34 Est GFR (MDRD) Af Amer > 60 (>60) 05/02/23 05:34 Est GFR (MDRD) Non-Af > 60 (>60) 05/02/23 05:34 Glucose 98 mg/dL (65-99) 05/02/23 05:34 Lactic Acid 1.8 mmol/L (0.4-2.0) 04/27/23 17:55 Calcium 7.9 mg/dL (8.5-10.1) L 05/02/23 05:34 Corrected Calcium 10.0 mg/dL (8.5-10.1) 05/02/23 05:34 Magnesium 1.9 mg/dL (2.0-2.9) L 05/02/23 05:34 Total Bilirubin 0.40 mg/dL (0.2-1.0) 05/02/23 05:34 AST 18 Units/L (15-37) 05/02/23 05:34 ALT 14 Units/L (12-78) 05/02/23 05:34 Alkaline Phosphatase 81 Units/L (46-116) 05/02/23 05:34 C-Reactive Protein 195.30 mg/L (0-3.0) H 04/27/23 17:55 Total Protein 6.1 g/dL (6.4-8.2) L 05/02/23 05:34 Albumin 1.4 g/dL (3.4-5.0) L 05/02/23 05:34 Globulin 4.7 g/dL (2.5-4.5) H 05/02/23 05:34 Albumin/Globulin Ratio 0.3 Ratio (1.1-2.1) L 05/02/23 05:34 Specimen Type Catherized urine 04/29/23 17:30 Urine Color Bloody (YELLOW) 04/29/23 17:30 Urine Appearance Cloudy (CLEAR) 04/29/23 17:30 Urine pH 5.0 (5.0 - 8.0) 04/29/23 17:30 Ur Specific [place] 1.020 (1.000-1.030) 04/29/23 17:30 Urine Protein 3+ (NEGATIVE) 04/29/23 17:30 Urine Glucose (UA) Negative (NEGATIVE) 04/29/23 17:30 Urine Ketones Negative (NEGATIVE) 04/29/23 17:30 Urine Blood 5+ (NEGATIVE) 04/29/23 17:30 Urine Nitrite Negative (NEGATIVE) 04/29/23 17:30 Urine Bilirubin Negative (NEGATIVE) 04/29/23 17:30 Urine Urobilinogen 3+ (NORMAL) 04/29/23 17:30 Ur Leukocyte Esterase 3+ (NEGATIVE) 04/29/23 17:30 Urine RBC Tntc /HPF (0-3) A 04/29/23 17:30 Urine WBC 3-5 /HPF (0-5) 04/29/23 17:30 Ur Squamous Epith Cells Negative /HPF (NEGATIVE) 04/29/23 17:30 Uric Acid Crystals Moderate /HPF (NEGATIVE) 04/29/23 17:30 Amorphous Sediment 1+ /HPF (NEGATIVE) 04/29/23 17:30 Urine Bacteria Negative /HPF (NEGATIVE) 04/29/23 17:30 Hyaline Casts Rare /LPF (NEGATIVE) 04/27/23 16:18 Urine Mucus Few /HPF (NEGATIVE) 04/27/23 16:18 Ur Culture Indicated? No/not indicated 04/29/23 17:30 Random Vancomycin 19.0 ug/mL 05/01/23 19:30 Blood Type Cancelled 05/01/23 21:30 Antibody Screen Cancelled 05/01/23 21:30 Crossmatch See Detail 05/01/23 21:30 Plan (1) 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 2 x 0.8 cm. The patient's blood cultures grew out Staphylococcus lugdunensis which is methicillin-resistant patient is currently receiving IV vancomycin. I called and discussed this with cardiovascular and thoracic surgery at [facility] as well as hospitalist Dr. Wesley and they have agreed to accept the patient. We will continue current treatment and work on start transferring the patient there. (2) Cystitis: Status: Acute (3) Acute urinary retention: Status: Acute (4) Leukocytosis: Status: Acute (5) History of CVA (cerebrovascular accident): Status: Acute (6) History of non-ST elevation myocardial infarction (NSTEMI): Status: Acute (7) Anemia: Status: Acute (8) Hypoalbuminemia: Status: Acute
--- NOTE | 2023-05-03 15:11 | PCM.DCPLAN ---
DISCHARGE SUMMARY Admission Date Date of Admission: 04/28/23 Discharge Date Discharge Date: 05/02/23 Admission Diagnoses (1) Cystitis: Status: Acute (2) Acute urinary retention: Status: Acute (3) Leukocytosis: Status: Acute (4) History of CVA (cerebrovascular accident): Status: Acute (5) History of non-ST elevation myocardial infarction (NSTEMI): Status: Acute (6) Anemia: Status: Acute (7) Hypoalbuminemia: Status: Acute Discharge Diagnoses Discharge Diagnosis: 1. 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 Cystitis 3. Acute urinary retention 4. Leukocytosis improved 5. Bacteremia secondary to Staphylococcus lugdunensis 6. Anemia 7. Hypoalbuminemia 8. History of CVA Discharge Medications Discharge Medications: Prescriptions: Hospital Course Vital Signs: Vital Signs Temperature 97.8 F Temperature 98.5 F Pulse Rate [Left] 82 Pulse Rate [Left] 80 Respiratory Rate 20 Respiratory Rate 20 Respiratory Rate 20 Blood Pressure [Right Arm] 97/51 Blood Pressure [Right Arm] 105/55 O2 Sat by Pulse Oximetry 97 O2 Sat by Pulse Oximetry 99 Latest Lab Results: Laboratory Last Values WBC 11.4 X10^3/uL (3.6-10.0) H 05/01/23 05:23 RBC 2.57 X10^6/uL (4.7-6.0) L 05/01/23 05:23 Hgb 7.1 g/dL (13.5-18.0) L 05/01/23 05:23 Hct 21.9 % (42.0-54.0) L 05/01/23 05:23 MCV 85.3 fL (80.0-100.0) 05/01/23 05:23 MCH 27.5 pg (27.0-34.0) 05/01/23 05:23 MCHC 32.2 g/dL (33.0-35.0) L 05/01/23 05:23 RDW 18.1 % (11.6-16.5) H 05/01/23 05:23 Plt Count 198 X10^3/uL (150.0-450.0) 05/01/23 05:23 MPV 7.9 fL (7.4-11.0) 05/01/23 05:23 Neut % (Auto) 76.8 % (42.0-75.0) H 05/01/23 05:23 Lymph % (Auto) 13.2 % (21.0-51.0) L 05/01/23 05:23 [place] % (Auto) 8.9 % (0.0-13.0) 05/01/23 05:23 Eos % (Auto) 0.7 % (0.9-2.9) L 05/01/23 05:23 Baso % (Auto) 0.4 % (0.2-1.0) 05/01/23 05:23 Neut # (Auto) 8.8 x10^3/uL (2.2-4.8) H 05/01/23 05:23 Lymph # (Auto) 1.5 X10^3/uL (1.3-2.9) 05/01/23 05:23 [place] # (Auto) 1.0 x10^3/uL (0.3-0.8) H 05/01/23 05:23 Eos # (Auto) 0.1 x10^3/uL (0.0-0.2) 05/01/23 05:23 Baso # (Auto) 0.0 X10^3/uL (0.0-0.1) 05/01/23 05:23 Absolute Nucleated RBC 0.0 /100WBC 05/01/23 05:23 Sodium 134 mmol/L (136-145) L 05/01/23 05:23 Corrected Sodium TNP 05/01/23 05:23 Potassium 4.3 mmol/L (3.5-5.1) 05/01/23 05:23 Chloride 107 mmol/L (98-107) 05/01/23 05:23 Carbon Dioxide 20.0 mmol/L (21-32) L 05/01/23 05:23 BUN 7 mg/dL (7-18) 05/01/23 05:23 Creatinine 0.86 mg/dL (0.70-1.30) 05/01/23 05:23 Est GFR (MDRD) Af Amer > 60 (>60) 05/01/23 05:23 Est GFR (MDRD) Non-Af > 60 (>60) 05/01/23 05:23 Glucose 79 mg/dL (65-99) 05/01/23 05:23 Lactic Acid 1.8 mmol/L (0.4-2.0) 04/27/23 17:55 Calcium 7.8 mg/dL (8.5-10.1) L 05/01/23 05:23 Corrected Calcium 9.9 mg/dL (8.5-10.1) 05/01/23 05:23 Magnesium 2.0 mg/dL (2.0-2.9) 05/01/23 05:23 Total Bilirubin 0.60 mg/dL (0.2-1.0) 05/01/23 05:23 AST 20 Units/L (15-37) 05/01/23 05:23 ALT 12 Units/L (12-78) 05/01/23 05:23 Alkaline Phosphatase 93 Units/L (46-116) 05/01/23 05:23 C-Reactive Protein 195.30 mg/L (0-3.0) H 04/27/23 17:55 Total Protein 6.0 g/dL (6.4-8.2) L 05/01/23 05:23 Albumin 1.4 g/dL (3.4-5.0) L 05/01/23 05:23 Globulin 4.6 g/dL (2.5-4.5) H 05/01/23 05:23 Albumin/Globulin Ratio 0.3 Ratio (1.1-2.1) L 05/01/23 05:23 Specimen Type Catherized urine 04/29/23 17:30 Urine Color Bloody (YELLOW) 04/29/23 17: Urine Appearance Cloudy (CLEAR) 04/29/23 17:30 Urine pH 5.0 (5.0 - 8.0) 04/29/23 17:30 Ur Specific [place] 1.020 (1.000-1.030) 04/29/23 17:30 Urine Protein 3+ (NEGATIVE) 04/29/23 17: Urine Glucose (UA) Negative (NEGATIVE) 04/29/23 17:30 Urine Ketones Negative (NEGATIVE) 04/29/23 17:30 Urine Blood 5+ (NEGATIVE) 04/29/23 17: Urine Nitrite Negative (NEGATIVE) 04/29/23 17: Urine Bilirubin Negative (NEGATIVE) 04/29/23 17:30 Urine Urobilinogen 3+ (NORMAL) 04/29/23 17:30 Ur Leukocyte Esterase 3+ (NEGATIVE) 04/29/23 17:30 Urine RBC Tntc /HPF (0-3) A 04/29/23 17:30 Urine WBC 3-5 /HPF (0-5) 04/29/23 17:30 Ur Squamous Epith Cells Negative /HPF (NEGATIVE) 04/29/23 17:30 Uric Acid Crystals Moderate /HPF (NEGATIVE) 04/29/23 17:30 Amorphous Sediment 1+ /HPF (NEGATIVE) 04/29/23 17:30 Urine Bacteria Negative /HPF (NEGATIVE) 04/29/23 17:30 Hyaline Casts Rare /LPF (NEGATIVE) 04/27/23 16:18 Urine Mucus Few /HPF (NEGATIVE) 04/27/23 16:18 Ur Culture Indicated? No/not indicated 04/29/23 17:30 Random Vancomycin 19.0 ug/mL 05/01/23 19:30 Hospital Course: This is a pleasant 62-year-old black male who is a patient of Dr. Lonnie Pool's whom I am covering for today. The patient has a past medical history of CVA, neuropathy, prostate/penile cancer? with malave catheter presenting with weakness and dysuria for the past 2-3 days. Reports discoloration in urine in Malave bag. Denies fevers, chills. Labs/imaging: WBC 14.9, hemoglobin 8.3, platelets 199, sodium 131, potassium 3.2, creatinine 1.45, glucose 110, UA positive, urine/blood culture pending. Patient was admitted for acute cystitis. He is currently receiving IV fluids normal saline at 80 mL/h. IV antibiotics Zosyn. Will restart home medications. Otherwise continue with current treatment plan. Continue to closely monitor and follow-up labs/imaging. After day the blood cultures came back and he grew out Staphylococcus lugdunensis which is methicillin-resistant and at that time they changed his antibiotic from Zosyn to IV vancomycin. The patient's hemoglobin has been trending down since admission and he is at 7.1 g today. I reviewed the patient's vital signs again at 2105 tonight and I see that the 8:00 blood pressure check his blood pressure was 97/51. I will we will go ahead and have the nurses give him 1 unit of packed red cells prior to his transfer to [facility] later this evening or in the morning. The patient also had a echocardiogram done by cardiology, Dr. Steve Rodríguez and on the transthoracic echo which showed that the patient had a aortic valve vegetation 1.2 x 0[address] Rodríguez, cardiology recommended that the patient be transferred to a tertiary care center where they have cardiovascular and Thoracics as he felt surgical intervention would be the best route to go given the size of the patient's aortic vegetation that he has. I called and discussed this with Dr. Rodríguez and I told him I would arrange transfer of the patient to [facility]. The accepting physician will be Dr. Wesley, hospitalist at [facility] in [place], [place] and they will be receiving him soon as they have a bed available. Unfortunately they were not able to get the patient transferred on , 01 May 2023 however they were able to except the patient the following morning on Friday, 02 May 2023. Patient left just after 8:00 in the morning and he is doing well has no new complaints at this time. He is st ill hemodynamically stable and his hemoglobin is up a little bit to 7.3 g.
== END 2023-05-02 08:32 | disposition short-term general hospital (02) | DRG 871 ==
LOC: MED/SURG 15:44 → ER 15:44 → MED/SURG 20:00
PROVIDERS: ADMIT Family Medicine; ATTEND Family Medicine
DX: Z86.73 Personal history of transient ischemic attack (TIA), and cerebral infarction without residual deficits; I25.2 Old myocardial infarction; N17.8 Other acute kidney failure; R10.84 Generalized abdominal pain; R26.89 Other abnormalities of gait and mobility; B95.62 Methicillin resistant Staphylococcus aureus infection as the cause of diseases classified elsewhere; E87.6 Hypokalemia; R13.11 Dysphagia, oral phase; Z85.46 Personal history of malignant neoplasm of prostate; R78.81 Bacteremia; R53.1 Weakness; D64.9 Anemia, unspecified; I33.9 Acute and subacute endocarditis, unspecified; I10 Essential (primary) hypertension; N40.0 Benign prostatic hyperplasia without lower urinary tract symptoms; E88.09 Other disorders of plasma-protein metabolism, not elsewhere classified; R79.82 Elevated C-reactive protein (CRP); E87.1 Hypo-osmolality and hyponatremia; N30.01 Acute cystitis with hematuria

== ENCOUNTER 2023-05-11 16:57 | Inpatient (IN) ==
[2023-05-11] MEDS: COREG TAB 25 MG PO SCH (23:01)
[2023-05-11] MEDS: LYRICA CAP 150 mg PO SCH (23:02)
[2023-05-11] MEDS: LIPITOR TAB 20 MG PO SCH (23:02)
[2023-05-12 05:34] LABS: ALANINE AMINOTRANSFERASE 8 Units/L (12-78); ALBUMIN 1.4 g/dL (3.4-5.0); ALKALINE PHOSPHATASE 56 Units/L (46-116); ASPARTATE AMINO TRANSFERASE 16 Units/L (15-37); BLOOD UREA NITROGEN 17 mg/dL (7-18); CALCIUM 7.5 mg/dL (8.5-10.1); CARBON DIOXIDE 24.7 mmol/L (21-32); CHLORIDE 104 mmol/L (98-107); COR CA(FOR HYPOALB) 9.6 mg/dL (8.5-10.1); CREATININE 2.34 mg/dL (0.70-1.30); GLUCOSE 98 mg/dL (65-99); POTASSIUM 4.4 mmol/L (3.5-5.1); SODIUM 135 mmol/L (136-145); TOTAL PROTEIN 6.2 g/dL (6.4-8.2); eGFR NON BLACK RACES 30 (>60)
[2023-05-12 05:42] LABS: BASOPHILS % (AUTO) 0.6 % (0.2-1.0); EOSINOPHILS % (AUTO) 0.2 % (0.9-2.9); HEMATOCRIT 21.5 % (42.0-54.0); HEMOGLOBIN 7.2 g/dL (13.5-18.0); LYMPHOCYTES # (AUTO) 1.2 X10^3/uL (1.3-2.9); LYMPHOCYTES % (AUTO) 15.6 % (21.0-51.0); MEAN CORPUSCULAR HEMOGLOBIN 29.5 pg (27.0-34.0); MEAN CORPUSCULAR HGB CONC 33.8 g/dL (33.0-35.0); MEAN CORPUSCULAR VOLUME 87.3 fL (80.0-100.0); MEAN PLATELET VOLUME 8.8 fL (7.4-11.0); MONOCYTES # (AUTO) 0.9 x10^3/uL (0.3-0.8); MONOCYTES % (AUTO) 12.7 % (0.0-13.0); NEUTROPHILS # (AUTO) 5.3 x10^3/uL (2.2-4.8); NEUTROPHILS % (AUTO) 70.9 % (42.0-75.0); PLATELET COUNT 149 X10^3/uL (150.0-450.0); RED BLOOD COUNT 2.46 X10^6/uL (4.7-6.0); RED CELL DISTRIBUTION WIDTH 18.4 % (11.6-16.5); WHITE BLOOD COUNT 7.4 X10^3/uL (3.6-10.0)
[2023-05-12] MEDS: CUBICIN VIAL 500 MG IVP SCH (16:29)
[2023-05-12] MEDS ORDERED: MILK OF MAGNESIA PO PRN (17:47)
[2023-05-13 05:39] LABS: ALANINE AMINOTRANSFERASE 7 Units/L (12-78); ALBUMIN 1.3 g/dL (3.4-5.0); ALKALINE PHOSPHATASE 55 Units/L (46-116); ASPARTATE AMINO TRANSFERASE 18 Units/L (15-37); BLOOD UREA NITROGEN 22 mg/dL (7-18); CALCIUM 7.6 mg/dL (8.5-10.1); CARBON DIOXIDE 22.5 mmol/L (21-32); CHLORIDE 105 mmol/L (98-107); COR CA(FOR HYPOALB) 9.8 mg/dL (8.5-10.1); CREATININE 2.49 mg/dL (0.70-1.30); GLUCOSE 82 mg/dL (65-99); POTASSIUM 4.3 mmol/L (3.5-5.1); SODIUM 136 mmol/L (136-145); TOTAL PROTEIN 6.2 g/dL (6.4-8.2); eGFR NON BLACK RACES 28 (>60)
[2023-05-13 05:43] LABS: MEAN PLATELET VOLUME 9.3 fL (7.4-11.0); RED BLOOD COUNT 2.34 X10^6/uL (4.7-6.0); RED CELL DISTRIBUTION WIDTH 18.1 % (11.6-16.5)
[2023-05-13 05:47] LABS: BASOPHILS % (AUTO) 0.3 % (0.2-1.0); EOSINOPHILS % (AUTO) 0.1 % (0.9-2.9); HEMATOCRIT 20.4 % (42.0-54.0); LYMPHOCYTES % (AUTO) 12.6 % (21.0-51.0); MEAN CORPUSCULAR HGB CONC 33.4 g/dL (33.0-35.0); MONOCYTES # (AUTO) 0.7 x10^3/uL (0.3-0.8); MONOCYTES % (AUTO) 9.4 % (0.0-13.0); NEUTROPHILS % (AUTO) 77.6 % (42.0-75.0); PLATELET COUNT 150 X10^3/uL (150.0-450.0); WHITE BLOOD COUNT 7.8 X10^3/uL (3.6-10.0)
[2023-05-13 05:52] LABS: HEMOGLOBIN 6.8 g/dL (13.5-18.0)
[2023-05-13 09:14] VITALS: BMI 26.9
[2023-05-13] MEDS: LASIX IVP ONE (15:44)
--- NOTE | 2023-05-13 15:45 | RAD ---
EXAM:CHEST, 1 VIEWHISTORY:SOB;COMPARISON:08/04/2022 [email or web address] radiographFINDINGS:Heart size enlarged with multifocal airspace opacities in the lungs. No pneumothorax or definite pleural effusion. Right PICC line to the proximal SVC most likely. No pneumothorax.IMPRESSION:Cardiomegaly with multifocal acinar opacities throughout the lungs.THIS IS AN ELECTRONICALLY VERIFIED FINAL REPORT05/13/2023 3:42 PM - Electronically signed by Yoandy Fletcher MD
[2023-05-13] MEDS ORDERED: CUBICIN VIAL 500 MG ONE (15:47)
[2023-05-13 16:43] LABS: HEMATOCRIT 27.3 % (42.0-54.0); HEMOGLOBIN 9.1 g/dL (13.5-18.0)
[2023-05-13] MEDS: MORPHINE SULFATE INJ 2 MG INJ IVP PRN (17:34)
[2023-05-13] MEDS: PERCOCET TAB 5/325 MG PO PRN (20:52)
[2023-05-14 05:26] LABS: BASOPHILS % (AUTO) 0.4 % (0.2-1.0); EOSINOPHILS % (AUTO) 0.3 % (0.9-2.9); HEMATOCRIT 25.9 % (42.0-54.0); HEMOGLOBIN 8.6 g/dL (13.5-18.0); LYMPHOCYTES # (AUTO) 0.5 X10^3/uL (1.3-2.9); MEAN CORPUSCULAR HEMOGLOBIN 29.2 pg (27.0-34.0); MEAN CORPUSCULAR HGB CONC 33.3 g/dL (33.0-35.0); MEAN CORPUSCULAR VOLUME 87.5 fL (80.0-100.0); MEAN PLATELET VOLUME 9.4 fL (7.4-11.0); MONOCYTES # (AUTO) 0.5 x10^3/uL (0.3-0.8); MONOCYTES % (AUTO) 6.6 % (0.0-13.0); NEUTROPHILS # (AUTO) 6.5 x10^3/uL (2.2-4.8); NEUTROPHILS % (AUTO) 85.7 % (42.0-75.0); PLATELET COUNT 143 X10^3/uL (150.0-450.0); RED BLOOD COUNT 2.96 X10^6/uL (4.7-6.0); RED CELL DISTRIBUTION WIDTH 17.1 % (11.6-16.5); WHITE BLOOD COUNT 7.6 X10^3/uL (3.6-10.0)
[2023-05-14 05:35] LABS: ALANINE AMINOTRANSFERASE 10 Units/L (12-78); ALBUMIN 1.3 g/dL (3.4-5.0); ALKALINE PHOSPHATASE 58 Units/L (46-116); ASPARTATE AMINO TRANSFERASE 28 Units/L (15-37); BLOOD UREA NITROGEN 29 mg/dL (7-18); CALCIUM 7.8 mg/dL (8.5-10.1); CARBON DIOXIDE 23.4 mmol/L (21-32); CHLORIDE 104 mmol/L (98-107); GLUCOSE 99 mg/dL (65-99); POTASSIUM 4.4 mmol/L (3.5-5.1); SODIUM 135 mmol/L (136-145); TOTAL PROTEIN 6.4 g/dL (6.4-8.2); eGFR NON BLACK RACES 27 (>60)
--- NOTE | 2023-05-14 08:30 | PCM.PROG ---
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 He was transferred to [facility] in [place] due to vegetation on aortic valve. There he decided not to pursue surgical intervention, and will need 6 weeks IV antibiotics- Daptomycin. Labs/imaging: Wbc 7.4, Hgb 7.2, Plt 149, Na 135, K 4.4, Creatinine 2.34, Glucose 98. Will review records and continue with current treatment plan. Home medications have been resumed. Continue to closely monitor and follow up labs in the morning. Past Medical Family Social History Allergies: Allergies No Known Allergies Allergy (Verified 03/28/23 21:27) Review of Systems ROS: No change since H&P ROS changes noted: see HPI Vital Signs and I&O's Vital Signs: Vital Signs Temperature 97.8 F Temperature 98.5 F Pulse Rate [Right Brachial] 77 Pulse Rate [Right Brachial] 93 Respiratory Rate 24 Respiratory Rate 31 Blood Pressure [Right Calf] 94/44 Blood Pressure [Right Calf] 118/53 O2 Sat by Pulse Oximetry 98 O2 Sat by Pulse Oximetry 99 Intake and Output: Intake & Output 05/11/23 05/12/23 05/13/23 05/14/23 23:59 23:59 23:59 23:59 Intake Total 20 / 20 870 / 870 870 / 870 240 / 240 Output Total 870 / 870 750 / 750 100 / 100 Balance 20 / 20 0 / 0 120 / 120 140 / 140 Physical Exam Oriented: Normal Eyes: Normal Ear: Normal Nose: Normal Throat: Normal Respiratory: Normal Cardiovascular: Normal : Normal Auscultation: Bowel Sounds: Normal Tenderness: Normal Skin: Normal Musculoskeletal: Motor Deficit (left hemiparesis) Psychiatric: Normal Mood Description: Calm and Appropriate Affect: Normal Speech Pattern: Clear and Appropriate Laboratory and Diagnostics 05/14/23 04:35 05/14/23 04:35 Labs: Laboratory WBC 7.6 X10^3/uL (3.6-10.0) 05/14/23 04:35 RBC 2.96 X10^6/uL (4.7-6.0) L 05/14/23 04:35 Hgb 8.6 g/dL (13.5-18.0) L 05/14/23 04:35 Hct 25.9 % (42.0-54.0) L 05/14/23 04:35 MCV 87.5 fL (80.0-100.0) 05/14/23 04:35 MCH 29.2 pg (27.0-34.0) 05/14/23 04:35 MCHC 33.3 g/dL (33.0-35.0) 05/14/23 04:35 RDW 17.1 % (11.6-16.5) H 05/14/23 04:35 Plt Count 143 X10^3/uL (150.0-450.0) L 05/14/23 04:35 MPV 9.4 fL (7.4-11.0) 05/14/23 04:35 Neut % (Auto) 85.7 % (42.0-75.0) H 05/14/23 04:35 Lymph % (Auto) 7.0 % (21.0-51.0) L 05/14/23 04:35 [place] % (Auto) 6.6 % (0.0-13.0) 05/14/23 04:35 Eos % (Auto) 0.3 % (0.9-2.9) L 05/14/23 04:35 Baso % (Auto) 0.4 % (0.2-1.0) 05/14/23 04:35 Neut # (Auto) 6.5 x10^3/uL (2.2-4.8) H 05/14/23 04:35 Lymph # (Auto) 0.5 X10^3/uL (1.3-2.9) L 05/14/23 04:35 [place] # (Auto) 0.5 x10^3/uL (0.3-0.8) 05/14/23 04:35 Eos # (Auto) 0.0 x10^3/uL (0.0-0.2) 05/14/23 04:35 Baso # (Auto) 0.0 X10^3/uL (0.0-0.1) 05/14/23 04:35 Absolute Nucleated RBC 0.0 /100WBC 05/14/23 04:35 Sodium 135 mmol/L (136-145) L 05/14/23 04:35 Corrected Sodium TNP 05/14/23 04:35 Potassium 4.4 mmol/L (3.5-5.1) 05/14/23 04:35 Chloride 104 mmol/L (98-107) 05/14/23 04:35 Carbon Dioxide 23.4 mmol/L (21-32) 05/14/23 04:35 BUN 29 mg/dL (7-18) H 05/14/23 04:35 Creatinine 2.60 mg/dL (0.70-1.30) H 05/14/23 04:35 Est GFR (MDRD) Af Amer 32 (>60) L 05/14/23 04:35 Est GFR (MDRD) Non-Af 27 (>60) L 05/14/23 04:35 Glucose 99 mg/dL (65-99) 05/14/23 04:35 Calcium 7.8 mg/dL (8.5-10.1) L 05/14/23 04:35 Corrected Calcium 10.0 mg/dL (8.5-10.1) 05/14/23 04:35 Total Bilirubin 1.20 mg/dL (0.2-1.0) H 05/14/23 04:35 AST 28 Units/L (15-37) 05/14/23 04:35 ALT 10 Units/L (12-78) L 05/14/23 04:35 Alkaline Phosphatase 58 Units/L (46-116) 05/14/23 04:35 Creatine Kinase 112 Units/L (39-308) 05/13/23 04:45 Total Protein 6.4 g/dL (6.4-8.2) 05/14/23 04:35 Albumin 1.3 g/dL (3.4-5.0) L 05/14/23 04:35 Globulin 5.1 g/dL (2.5-4.5) H 05/14/23 04:35 Albumin/Globulin Ratio 0.3 Ratio (1.1-2.1) L 05/14/23 04:35 Blood Type A POSITIVE 05/13/23 08:35 Antibody Screen Negative 05/13/23 08:35 Crossmatch See Detail 05/13/23 08:35 Plan (1) 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 2 x 0.8 cm. The patient's blood cultures grew out Staphylococcus lugdunensis. Transferred back from [facility], did not pursue surgical intervention. Continue IV Daptomycin for six weeks. (2) Cystitis: Status: Acute (3) Acute urinary retention: Status: Acute (4) Leukocytosis: Status: Acute (5) History of CVA (cerebrovascular accident): Status: Acute (6) History of non-ST elevation myocardial infarction (NSTEMI): Status: Acute (7) Anemia: Status: Acute (8) Hypoalbuminemia: Status: Acute
--- NOTE | 2023-05-14 08:34 | PCM.PROG ---
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 This morning he is resting comfortably in bed. No acute events overnight. He is currently receiving IV antibiotics-Daptomycin. Labs/imaging: Wbc 7.8, Hgb 6.8, Plt 150, Na 136, K 4.3, Creatinine 2.49, Glucose 82. Home medications have been resumed. Will order 1 unit packed red blood cells due to anemia. Otherwise, continue with current treatment plan. Continue to closely monitor and follow up labs in the morning. Past Medical Family Social History Allergies: Allergies No Known Allergies Allergy (Verified 03/28/23 21:27) Review of Systems ROS changes noted: see HPI Vital Signs and I&O's Vital Signs: Vital Signs Temperature 97.8 F Temperature 98.5 F Pulse Rate [Right Brachial] 77 Pulse Rate [Right Brachial] 93 Respiratory Rate 24 Respiratory Rate 31 Blood Pressure [Right Calf] 94/44 Blood Pressure [Right Calf] 118/53 O2 Sat by Pulse Oximetry 98 O2 Sat by Pulse Oximetry 99 Intake and Output: Intake & Output 05/11/23 05/12/23 05/13/23 05/14/23 23:59 23:59 23:59 23:59 Intake Total 20 / 20 870 / 870 870 / 870 240 / 240 Output Total 870 / 870 750 / 750 100 / 100 Balance 20 / 20 0 / 0 120 / 120 140 / 140 Physical Exam Oriented: Normal Eyes: Normal Ear: Normal Nose: Normal Throat: Normal Respiratory: Normal Cardiovascular: Normal : Normal Auscultation: Bowel Sounds: Normal Tenderness: Normal Skin: Normal Musculoskeletal: Motor Deficit (left hemiparesis) Psychiatric: Normal Mood Description: Calm and Appropriate Affect: Normal Speech Pattern: Clear and Appropriate Laboratory and Diagnostics 05/14/23 04:35 05/14/23 04:35 Labs: Laboratory WBC 7.6 X10^3/uL (3.6-10.0) 05/14/23 04:35 RBC 2.96 X10^6/uL (4.7-6.0) L 05/14/23 04:35 Hgb 8.6 g/dL (13.5-18.0) L 05/14/23 04:35 Hct 25.9 % (42.0-54.0) L 05/14/23 04:35 MCV 87.5 fL (80.0-100.0) 05/14/23 04:35 MCH 29.2 pg (27.0-34.0) 05/14/23 04:35 MCHC 33.3 g/dL (33.0-35.0) 05/14/23 04:35 RDW 17.1 % (11.6-16.5) H 05/14/23 04:35 Plt Count 143 X10^3/uL (150.0-450.0) L 05/14/23 04:35 MPV 9.4 fL (7.4-11.0) 05/14/23 04:35 Neut % (Auto) 85.7 % (42.0-75.0) H 05/14/23 04:35 Lymph % (Auto) 7.0 % (21.0-51.0) L 05/14/23 04:35 [place] % (Auto) 6.6 % (0.0-13.0) 05/14/23 04:35 Eos % (Auto) 0.3 % (0.9-2.9) L 05/14/23 04:35 Baso % (Auto) 0.4 % (0.2-1.0) 05/14/23 04:35 Neut # (Auto) 6.5 x10^3/uL (2.2-4.8) H 05/14/23 04:35 Lymph # (Auto) 0.5 X10^3/uL (1.3-2.9) L 05/14/23 04:35 [place] # (Auto) 0.5 x10^3/uL (0.3-0.8) 05/14/23 04:35 Eos # (Auto) 0.0 x10^3/uL (0.0-0.2) 05/14/23 04:35 Baso # (Auto) 0.0 X10^3/uL (0.0-0.1) 05/14/23 04:35 Absolute Nucleated RBC 0.0 /100WBC 05/14/23 04:35 Sodium 135 mmol/L (136-145) L 05/14/23 04:35 Corrected Sodium TNP 05/14/23 04:35 Potassium 4.4 mmol/L (3.5-5.1) 05/14/23 04:35 Chloride 104 mmol/L (98-107) 05/14/23 04:35 Carbon Dioxide 23.4 mmol/L (21-32) 05/14/23 04:35 BUN 29 mg/dL (7-18) H 05/14/23 04:35 Creatinine 2.60 mg/dL (0.70-1.30) H 05/14/23 04:35 Est GFR (MDRD) Af Amer 32 (>60) L 05/14/23 04:35 Est GFR (MDRD) Non-Af 27 (>60) L 05/14/23 04:35 Glucose 99 mg/dL (65-99) 05/14/23 04:35 Calcium 7.8 mg/dL (8.5-10.1) L 05/14/23 04:35 Corrected Calcium 10.0 mg/dL (8.5-10.1) 05/14/23 04:35 Total Bilirubin 1.20 mg/dL (0.2-1.0) H 05/14/23 04:35 AST 28 Units/L (15-37) 05/14/23 04:35 ALT 10 Units/L (12-78) L 05/14/23 04:35 Alkaline Phosphatase 58 Units/L (46-116) 05/14/23 04:35 Creatine Kinase 112 Units/L (39-308) 05/13/23 04:45 Total Protein 6.4 g/dL (6.4-8.2) 05/14/23 04:35 Albumin 1.3 g/dL (3.4-5.0) L 05/14/23 04:35 Globulin 5.1 g/dL (2.5-4.5) H 05/14/23 04:35 Albumin/Globulin Ratio 0.3 Ratio (1.1-2.1) L 05/14/23 04:35 Blood Type A POSITIVE 05/13/23 08:35 Antibody Screen Negative 05/13/23 08:35 Crossmatch See Detail 05/13/23 08:35 Plan (1) 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 2 x 0.8 cm. The patient's blood cultures gr ew out Staphylococcus lugdunensis. Transferred back from [facility], did not pursue surgical intervention. Continue IV Daptomycin for six weeks. (2) Cystitis: Status: Acute (3) Acute urinary retention: Status: Acute (4) Leukocytosis: Status: Acute (5) History of CVA (cerebrovascular accident): Status: Acute (6) History of non-ST elevation myocardial infarction (NSTEMI): Status: Acute (7) Anemia: Status: Acute (8) Hypoalbuminemia: Status: Acute
--- NOTE | 2023-05-14 08:39 | PCM.PROG ---
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 This morning he is requiring some supplemental oxygen. Yesterday, after receiving blood he was noted to have some increased work of breathing. Labs/imaging: Wbc 7.6, Hgb 8.6, Plt 143, Na 135, K 4.4, Creatinine 2.60, Glucose 99. CXR was obtained that revealed: Cardiomegaly with multifocal acinar opacities throughout the lungs. Will order CT of chest and respiratory therapy consult. Possible fluid overload due to symptoms starting after receiving blood, will order IV lasix 40mg x1. No fevers, or leukocytosis. Continue IV antibiotics: Daptomycin. Home medications have been resumed. Otherwise, continue with current treatment plan. Continue to closely monitor and follow up labs in the morning. Past Medical Family Social History Allergies: Allergies No Known Allergies Allergy (Verified 03/28/23 21:27) Review of Systems ROS changes noted: see HPI Vital Signs and I&O's Vital Signs: Vital Signs Temperature 97.8 F Temperature 98.5 F Pulse Rate [Right Brachial] 77 Pulse Rate [Right Brachial] 93 Respiratory Rate 24 Respiratory Rate 31 Blood Pressure [Right Calf] 94/44 Blood Pressure [Right Calf] 118/53 O2 Sat by Pulse Oximetry 98 O2 Sat by Pulse Oximetry 99 Intake and Output: Intake & Output 05/11/23 05/12/23 05/13/23 05/14/23 23:59 23:59 23:59 23:59 Intake Total 870 / 870 870 / 870 240 / 240 Output Total 870 / 870 750 / 750 100 / 100 Balance 0 / 0 120 / 120 140 / 140 Physical Exam Oriented: Normal Eyes: Normal Ear: Normal Nose: Normal Throat: Normal Respiratory: Rhonchi Cardiovascular: Normal : Normal Auscultation: Bowel Sounds: Normal Tenderness: Normal Skin: Normal Musculoskeletal: Motor Deficit (left hemiparesis) Psychiatric: Normal Mood Description: Calm and Appropriate Affect: Normal Speech Pattern: Clear and Appropriate Laboratory and Diagnostics 05/14/23 04:35 05/14/23 04:35 Labs: Laboratory WBC 7.6 X10^3/uL (3.6-10.0) 05/14/23 04:35 RBC 2.96 X10^6/uL (4.7-6.0) L 05/14/23 04:35 Hgb 8.6 g/dL (13.5-18.0) L 05/14/23 04:35 Hct 25.9 % (42.0-54.0) L 05/14/23 04:35 MCV 87.5 fL (80.0-100.0) 05/14/23 04:35 MCH 29.2 pg (27.0-34.0) 05/14/23 04:35 MCHC 33.3 g/dL (33.0-35.0) 05/14/23 04:35 RDW 17.1 % (11.6-16.5) H 05/14/23 04:35 Plt Count 143 X10^3/uL (150.0-450.0) L 05/14/23 04:35 MPV 9.4 fL (7.4-11.0) 05/14/23 04:35 Neut % (Auto) 85.7 % (42.0-75.0) H 05/14/23 04:35 Lymph % (Auto) 7.0 % (21.0-51.0) L 05/14/23 04:35 [place] % (Auto) 6.6 % (0.0-13.0) 05/14/23 04:35 Eos % (Auto) 0.3 % (0.9-2.9) L 05/14/23 04:35 Baso % (Auto) 0.4 % (0.2-1.0) 05/14/23 04:35 Neut # (Auto) 6.5 x10^3/uL (2.2-4.8) H 05/14/23 04:35 Lymph # (Auto) 0.5 X10^3/uL (1.3-2.9) L 05/14/23 04:35 [place] # (Auto) 0.5 x10^3/uL (0.3-0.8) 05/14/23 04:35 Eos # (Auto) 0.0 x10^3/uL (0.0-0.2) 05/14/23 04:35 Baso # (Auto) 0.0 X10^3/uL (0.0-0.1) 05/14/23 04:35 Absolute Nucleated RBC 0.0 /100WBC 05/14/23 04:35 Sodium 135 mmol/L (136-145) L 05/14/23 04:35 Corrected Sodium TNP 05/14/23 04:35 Potassium 4.4 mmol/L (3.5-5.1) 05/14/23 04:35 Chloride 104 mmol/L (98-107) 05/14/23 04:35 Carbon Dioxide 23.4 mmol/L (21-32) 05/14/23 04:35 BUN 29 mg/dL (7-18) H 05/14/23 04:35 Creatinine 2.60 mg/dL (0.70-1.30) H 05/14/23 04:35 Est GFR (MDRD) Af Amer 32 (>60) L 05/14/23 04:35 Est GFR (MDRD) Non-Af 27 (>60) L 05/14/23 04:35 Glucose 99 mg/dL (65-99) 05/14/23 04:35 Calcium 7.8 mg/dL (8.5-10.1) L 05/14/23 04:35 Corrected Calcium 10.0 mg/dL (8.5-10.1) 05/14/23 04:35 Total Bilirubin 1.20 mg/dL (0.2-1.0) H 05/14/23 04:35 AST 28 Units/L (15-37) 05/14/23 04:35 ALT 10 Units/L (12-78) L 05/14/23 04:35 Alkaline Phosphatase 58 Units/L (46-116) 05/14/23 04:35 Creatine Kinase 112 Units/L (39-308) 05/13/23 04:45 Total Protein 6.4 g/dL (6.4-8.2) 05/14/23 04:35 Albumin 1.3 g/dL (3.4-5.0) L 05/14/23 04:35 Globulin 5.1 g/dL (2.5-4.5) H 05/14/23 04:35 Albumin/Globulin Ratio 0.3 Ratio (1.1-2.1) L 05/14/23 04:35 Blood Type A POSITIVE 05/13/23 08:35 Antibody Screen Negative 05/13/23 08:35 Crossmatch See Detail 05/13/23 08:35 Plan (1) 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 2 x 0.8 cm. The patient's blood cultures grew out Staphylococcus lugdunensis. Transferred back from [facility], did not pursue surgical intervention. Continue IV Daptomycin for six weeks. (2) Cystitis: Status: Acute (3) Acute urinary retention: Status: Acute (4) Leukocytosis: Status: Acute (5) History of CVA (cerebrovascular accident): Status: Acute (6) History of non-ST elevation myocardial infarction (NSTEMI): Status: Acute (7) Anemia: Status: Acute (8) Hypoalbuminemia: Status: Acute
[2023-05-14] MEDS: PROTONIX INJ 40 MG VIAL IVP SCH (09:59)
[2023-05-14] MEDS: LASIX IVP ONE (09:59)
--- NOTE | 2023-05-14 10:36 | CT ---
EXAM:CHEST W/O CONHISTORY:SOB;COMPARISON:Chest CT 02/22/2023TECHNIQUE:Multiple CT axial images of the chest were obtained without IV contrast. Coronal and sagittal images were reconstructed. Dose reduction techniques included Automated Exposure Control (AEC) and adjustment of mA and kV.FINDINGS:Cardiomegaly is present. The pulmonary artery and aorta have a normal caliber.Mediastinal lymphadenopathy is new, probably reactive from the patient's lung disease. Largest lymph node is in the AP window with a short axis of 10 mm.The thyroid has a normal size and configuration. No axillary mass or significant axillary lymphadenopathy is identified.Small bilateral pleural effusions are new.Multifocal areas of bilateral airspace opacity are consistent with pneumonia. This was not present on the prior study. Small amount of nonobstructing secretions are noted in the lower trachea. Otherwise no evidence for airway obstruction.Mass in the spleen measures about 7.4 cm. On coronal imaging this has a wedge-shaped appearance so that it may represent a splenic infarct. The finding was not present on prior studies.Calcifications in the left kidney are present. Largest stone measures about 6 mm. There is no hydronephrosis on either side.Degenerative changes are present in the spine.IMPRESSION:1. Bilateral pneumonia with reactive effusions and mediastinal lymphadenopathy2. Findings suggesting large splenic infarct3. Nonobstructing left renal calculiTHIS IS AN ELECTRONICALLY VERIFIED FINAL REPORT05/14/2023 10:31 AM - Electronically signed by Ke Trimble MD
--- NOTE | 2023-05-14 12:32 | EKG ---
Test Reason : Low BP Blood Pressure : */* mmHG Vent. Rate : 95 BPM Atrial Rate : 95 BPM P-R Int : 154 ms QRS Dur : 80 ms QT Int : 364 ms P-R-T Axes : 46 46 2 degrees QTc Int : 457 ms Normal sinus rhythm Left atrial enlargement Left ventricular hypertrophy ( Sokolow-Cabello ) Abnormal ECG When compared with ECG of 04-AUG-2022 11:51, ST elevation now present in Lateral leads with j point elevation T wave amplitude has increased in Lateral leads Confirmed by Steve Rodríguez MD ([id number]) on 05/15/2023 7:50:45 AM Referred By: Confirmed By: Steve Rodríguez MD
[2023-05-14 12:40] LABS: ABG BASE EXCESS -1.1 mmol/L (-2.0-2.0); ABG HCO3 23.5 mmol/L (22-26)
[2023-05-14 12:41] LABS: ABG ALLEN TEST POS
[2023-05-14] MEDS: ZOSYN VIAL 3.375 GRAMS 3.375 G in NS 100 ML IV 100 ML IV SCH (12:57)
[2023-05-14] MEDS: NS 1,000 ML IV 1,000 ML IV SCH ×2 (12:57→13:00)
[2023-05-14] MEDS ORDERED: LOPRESSOR INJ 5 MG AMP IVP PRN (13:06)
[2023-05-14] MEDS ORDERED: APRESOLINE INJ 20 MG VIAL IVP PRN (13:07)
[2023-05-14] MEDS: DUONEB 0.5 MG/3 MG (3 mL) NEB SCH (13:45)
[2023-05-14] MEDS: LOPRESSOR INJ 5 MG AMP IVP ONE (13:48)
[2023-05-14 14:14] LABS: ABG HCO3 23.8 mmol/L (22-26)
[2023-05-14 14:15] LABS: ABG ALLEN TEST POS
[2023-05-14 17:18] LABS: ABG BASE EXCESS -0.1 mmol/L (-2.0-2.0); ABG HCO3 23.9 mmol/L (22-26)
[2023-05-14 17:20] LABS: ABG ALLEN TEST POS
[2023-05-14] MEDS ORDERED: DUKE'S Magic Mouthwash (nyst/dex/ben/doxyc) MT PRN (17:27)
[2023-05-14] MEDS ORDERED: DIPRIVAN PREMIX 1 GRAM IV 1,000 MG/100 ML VIAL ONE (17:30)
[2023-05-14] MEDS: VERSED ONE ×3 (17:55→22:05)
[2023-05-14] MEDS: AMIDATE INJ 40 MG VIAL ONE (17:55)
[2023-05-14] MEDS: DIPRIVAN PREMIX 1 GRAM IV 1,000 MG/100 ML VIAL IV PRN (18:00)
[2023-05-14] MEDS: VERSED IV PREMIX 100 MG/100 ML IV.SOLN IV PRN (18:00)
[2023-05-14 18:54] LABS: ABG ALLEN TEST POS; ABG BASE EXCESS -1.1 mmol/L (-2.0-2.0)
[2023-05-14] MEDS: NS 50 ML IV 50 ML IV ONE (19:31)
[2023-05-14] MEDS: LACRI-LUBE S.O.P. AFFEYE SCH (19:32)
[2023-05-14] MEDS: NS 100 ML IV 100 ML ONE (22:03)
[2023-05-15 04:10] LABS: ABG BASE EXCESS -0.5 mmol/L (-2.0-2.0); ABG HCO3 22.9 mmol/L (22-26)
[2023-05-15 04:11] LABS: ABG ALLEN TEST POS
[2023-05-15 05:46] LABS: BASOPHILS % (AUTO) 0.2 % (0.2-1.0); EOSINOPHILS # (AUTO) 0.1 x10^3/uL (0.0-0.2); EOSINOPHILS % (AUTO) 1.3 % (0.9-2.9); HEMATOCRIT 26.9 % (42.0-54.0); LYMPHOCYTES # (AUTO) 0.6 X10^3/uL (1.3-2.9); LYMPHOCYTES % (AUTO) 9.9 % (21.0-51.0); MEAN CORPUSCULAR HEMOGLOBIN 29.5 pg (27.0-34.0); MEAN CORPUSCULAR HGB CONC 33.4 g/dL (33.0-35.0); MEAN CORPUSCULAR VOLUME 88.3 fL (80.0-100.0); MEAN PLATELET VOLUME 9.7 fL (7.4-11.0); MONOCYTES # (AUTO) 0.2 x10^3/uL (0.3-0.8); MONOCYTES % (AUTO) 3.2 % (0.0-13.0); NEUTROPHILS # (AUTO) 5.3 x10^3/uL (2.2-4.8); NEUTROPHILS % (AUTO) 85.4 % (42.0-75.0); PLATELET COUNT 135 X10^3/uL (150.0-450.0); RED BLOOD COUNT 3.05 X10^6/uL (4.7-6.0); RED CELL DISTRIBUTION WIDTH 17.4 % (11.6-16.5); WHITE BLOOD COUNT 6.3 X10^3/uL (3.6-10.0)
[2023-05-15 05:54] LABS: ALANINE AMINOTRANSFERASE 10 Units/L (12-78); ALBUMIN 1.2 g/dL (3.4-5.0); ALKALINE PHOSPHATASE 61 Units/L (46-116); ASPARTATE AMINO TRANSFERASE 39 Units/L (15-37); BLOOD UREA NITROGEN 36 mg/dL (7-18); CALCIUM 7.8 mg/dL (8.5-10.1); CARBON DIOXIDE 22.4 mmol/L (21-32); CHLORIDE 103 mmol/L (98-107); CREATININE 3.02 mg/dL (0.70-1.30); GLUCOSE 88 mg/dL (65-99); POTASSIUM 4.4 mmol/L (3.5-5.1); SODIUM 135 mmol/L (136-145); TOTAL PROTEIN 6.4 g/dL (6.4-8.2); eGFR NON BLACK RACES 22 (>60)
--- NOTE | 2023-05-15 06:56 | RAD ---
EXAM: CHEST, 1 VIEW HISTORY: ET tube placement; COMPARISON: 05/13/2019. TECHNIQUE: AP chest 2 images. FINDINGS: ETT is in good position. Right upper extremity PICC line with tip in the right atrium. Cardiac silh ouette is mildly enlarged. There are diffuse bilateral airspace opacities similar to prior. No defi nite pleural effusion or pneumothorax. IMPRESSION: ETT in good position. Right upper extremity PICC line likely terminates just in the right atrium. C onsider 2-3 cm retraction for more optimal positioning. Severe stable bilateral airspace opacities. THIS IS AN ELECTRONICALLY VERIFIED FINAL REPORT 05/15/2023 6:52 AM - Electronically signed by Graham Fischer MD
--- NOTE | 2023-05-15 08:02 | RAD ---
EXAM:Portable AP chestHISTORY:Ventilator protocolCOMPARISON:05/14/2023FINDINGS:He art size is probably unchanged although significantly obscured by bilateral confluence airspace disease which demonstrates little if any change since 1 day prior. ETT remains in mid trachea. A right PICC now extends to the SVC.IMPRESSION:Similar appearance of heart and lungs. Pulmonary findings are consistent with advanced bilateral pneumonia, although some element of edema or ARDS may be present.THIS IS AN ELECTRONICALLY VERIFIED FINAL REPORT05/15/2023 7:56 AM - Electronically signed by Bryant Mcneal MD
[2023-05-15] MEDS: VERSED 100 MG in NS 100 ML IV 80 ML IV PRN (11:20)
[2023-05-15] MEDS: NS 1,000 ML IV 1,000 ML IV SCH (11:55)
[2023-05-15] MEDS: STERILE WATER IRRIGATION IR ONE (16:00)
[2023-05-15 16:30] VITALS: TEMP 98
[2023-05-15 17:26] VITALS: BP 92/43; PULSE 84; RESP 26
[2023-05-15 17:52] VITALS: O2SAT 96
[2023-05-15] MEDS: NS 1,000 ML IV 1,000 ML IV ONE (18:37)
[2023-05-15] MEDS ORDERED: ZOSYN VIAL 3.375 GRAMS 3.375 G in NS 100 ML IV 100 ML IV SCH (21:00)
--- NOTE | 2023-05-20 07:20 | W.DIS.FURT ---
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 He was transferred to [facility] last week and was evaluated and decision was made to not pursue any surgical intervention of aortic valve at that time and to receive IV daptomycin for 6 weeks. He was transferred back to [facility] on 05/11/23. Yesterday, patients health acutely declined and he had acute respiratory failure with CT of chest revealing severe bilateral pneumonia. He was intubated and is currently on the ventilator. His ABG this morning: pH 7.45, pCO2 33, pO2 68, HCO3 22, FiO2 70%. Added IV antibiotics: Zosyn. Pt will be transferred to higher level care facility, [facility] in [place], [place] for further treatment. Critical care time spent 30-74 minutes in clinical assessment, reviewing labs/imaging, decision making, and documentation. Vital Signs: Vital Signs (72 hours) 05/12/23 20:00 05/12/23 21:09 05/12/23 23:45 Temperature 98.4 F 98.7 F Pulse Rate Pulse Rate [Right Brachial] 102 H 102 H Respiratory Rate 20 21 Blood Pressure Blood Pressure [Right Calf] 176/76 170/75 O2 Sat by Pulse Oximetry 98 97 Oxygen Delivery Method Nasal Cannula Nasal Cannula Nasal Cannula Oxygen Flow Rate 3 FIO2% 32 05/13/23 04:00 05/13/23 08:18 05/13/23 08:00 Temperature 98.5 F 98.3 F Pulse Rate Pulse Rate [Right Brachial] 94 H 90 Respiratory Rate 19 20 Blood Pressure Blood Pressure [Right Calf] 157/66 152/67 O2 Sat by Pulse Oximetry 100 99 Oxygen Delivery Method Nasal Cannula Nasal Cannula Room Air Oxygen Flow Rate 3 FIO2% 32 05/13/23 07:00 05/13/23 12:00 05/13/23 16:00 Temperature 98.5 F 97.6 F Pulse Rate Pulse Rate [Right Brachial] 84 94 H Respiratory Rate 20 18 Blood Pressure Blood Pressure [Right Calf] 171/72 172/72 O2 Sat by Pulse Oximetry 99 97 Oxygen Delivery Method Nasal Cannula Room Air Room Air Oxygen Flow Rate 3 FIO2% 05/13/23 17:29 05/13/23 17:34 05/13/23 18:04 Temperature Pulse Rate Pulse Rate [Right Brachial] Respiratory Rate 28 H 28 H Blood Pressure Blood Pressure [Right Calf] O2 Sat by Pulse Oximetry Oxygen Delivery Method Oxy Mask Oxygen Flow Rate 3 FIO2% 33 05/13/23 20:52 05/13/23 21:02 05/13/23 20:00 Temperature 100.8 F H Pulse Rate Pulse Rate [Right Brachial] 102 H Respiratory Rate 24 38 H Blood Pressure Blood Pressure [Right Calf] 155/65 O2 Sat by Pulse Oximetry 96 Oxygen Delivery Method Oxy Mask Venturi Mask Oxygen Flow Rate 3 FIO2% 33 05/13/23 21:52 05/13/23 19:00 05/13/23 23:29 Temperature 98.8 F Pulse Rate Pulse Rate [Right Brachial] 97 H Respiratory Rate 18 31 H Blood Pressure Blood Pressure [Right Calf] 135/63 O2 Sat by Pulse Oximetry 98 Oxygen Delivery Method Nasal Cannula Venturi Mask Oxygen Flow Rate 3 FIO2% 05/14/23 04:00 05/14/23 07:00 05/14/23 08:00 Temperature 98.5 F 97.8 F Pulse Rate Pulse Rate [Right Brachial] 93 H 77 Respiratory Rate 31 H 24 Blood Pressure Blood Pressure [Right Calf] 118/53 94/44 O2 Sat by Pulse Oximetry 99 98 Oxygen Delivery Method Room Air Nasal Cannula Room Air Oxygen Flow Rate 3 FIO2% 05/14/23 08:21 05/14/23 09:00 05/14/23 12:30 Temperature 97.8 F 99.1 F Pulse Rate Pulse Rate [Right Brachial] 90 Respiratory Rate 24 27 H Blood Pressure 148/55 Blood Pressure [Right Calf] 150/67 O2 Sat by Pulse Oximetry 98 98 Oxygen Delivery Method Room Air Oxy Mask Oxy Mask Oxygen Flow Rate 3 10 FIO2% 33 61 05/14/23 13:00 05/14/23 13:48 05/14/23 13:45 Temperature Pulse Rate Pulse Rate [Right Brachial] 97 H Respiratory Rate 34 H Blood Pressure 156/66 Blood Pressure [Right Calf] 156/66 O2 Sat by Pulse Oximetry 94 L Oxygen Delivery Method Oxy Mask Oxy Mask Oxygen Flow Rate 10 10 FIO2% 61 61 05/14/23 13:45 05/14/23 14:00 05/14/23 15:00 Temperature Pulse Rate 100 H Pulse Rate [Right Brachial] 88 89 Respiratory Rate 29 H 33 H Blood Pressure Blood Pressure [Right Calf] 149/66 156/70 O2 Sat by Pulse Oximetry 90 L 91 L 89 L Oxygen Delivery Method Oxy Mask Oxy Mask Oxygen Flow Rate 10 10 FIO2% 61 61 05/14/23 16:00 05/14/23 18:00 05/14/23 17:55 Temperature 99.1 F Pulse Rate Pulse Rate [Right Brachial] 96 H Respiratory Rate 37 H 45 H 45 H Blood Pressure Blood Pressure [Right Calf] 151/69 O2 Sat by Pulse Oximetry 88 L Oxygen Delivery Method Oxy Mask Oxygen Flow Rate 10 FIO2% 61 80 80 05/14/23 17:00 05/14/23 17:57 05/14/23 18:00 Temperature Pulse Rate Pulse Rate [Right Brachial] 91 H 101 H 96 H Respiratory Rate 32 H 27 H 45 H Blood Pressure Blood Pressure [Right Calf] 147/67 144/60 127/58 O2 Sat by Pulse Oximetry 88 L 87 L 98 Oxygen Delivery Method Oxy Mask Oxy Mask Mechanical Ventilator Oxygen Flow Rate 10 10 FIO2% 61 61 80 05/14/23 18:05 05/14/23 18:00 05/14/23 18:10 Temperature Pulse Rate Pulse Rate [Right Brachial] 94 H 93 H Respiratory Rate 40 H 40 H 35 H Blood Pressure Blood Pressure [Right Calf] 127/56 129/56 O2 Sat by Pulse Oximetry 100 96 Oxygen Delivery Method Mechanical Ventilator Mechanical Ventilator Oxygen Flow Rate FIO2% 80 80 80 05/14/23 18:15 05/14/23 19:00 05/14/23 19:00 Temperature Pulse Rate Pulse Rate [Right Brachial] 93 H 91 H Respiratory Rate 32 H 26 H Blood Pressure Blood Pressure [Right Calf] 128/58 140/60 O2 Sat by Pulse Oximetry 96 100 Oxygen Delivery Method Mechanical Ventilator Mechanical Ventilator Oxygen Flow Rate FIO2% 80 80 80 05/14/23 19:00 05/14/23 20:00 05/14/23 20:00 Temperature 100.7 F H Pulse Rate Pulse Rate [Right Brachial] 90 Respiratory Rate 22 23 Blood Pressure Blood Pressure [Right Calf] 136/60 O2 Sat by Pulse Oximetry 100 Oxygen Delivery Method Mechanical Ventilator Mechanical Ventilator Oxygen Flow Rate FIO2% 80 80 80 05/14/23 20:30 05/14/23 20:30 05/14/23 22:05 Temperature Pulse Rate 90 Pulse Rate [Right Brachial] Respiratory Rate 25 H Blood Pressure Blood Pressure [Right Calf] O2 Sat by Pulse Oximetry 100 Oxygen Delivery Method Mechanical Ventilator Oxygen Flow Rate FIO2% 80 80 05/14/23 21:00 05/14/23 22:00 05/14/23 22:00 Temperature Pulse Rate Pulse Rate [Right Brachial] 90 89 Respiratory Rate 24 27 H 27 H Blood Pressure Blood Pressure [Right Calf] 135/61 113/49 O2 Sat by Pulse Oximetry 100 100 Oxygen Delivery Method Mechanical Ventilator Mechanical Ventilator Oxygen Flow Rate FIO2% 80 80 80 05/14/23 22:35 05/14/23 23:00 05/15/23 00:00 Temperature Pulse Rate Pulse Rate [Right Brachial] 86 Respiratory Rate 25 H 30 H 21 Blood Pressure Blood Pressure [Right Calf] 112/49 O2 Sat by Pulse Oximetry 99 Oxygen Delivery Method Mechanical Ventilator Oxygen Flow Rate FIO2% 80 80 80 05/15/23 00:00 05/15/23 00:14 05/15/23 01:00 Temperature 97.9 F Pulse Rate Pulse Rate [Right Brachial] 86 85 Respiratory Rate 22 20 Blood Pressure Blood Pressure [Right Calf] 116/51 111/55 O2 Sat by Pulse Oximetry 100 100 Oxygen Delivery Method Mechanical Ventilator Mechanical Ventilator Mechanical Ventilator Oxygen Flow Rate FIO2% 80 70 70 05/15/23 02:09 05/15/23 02:00 05/15/23 02:00 Temperature Pulse Rate Pulse Rate [Right Brachial] 85 Respiratory Rate 25 H 27 H 18 Blood Pressure Blood Pressure [Right Calf] 116/52 O2 Sat by Pulse Oximetry 98 Oxygen Delivery Method Mechanical Ventilator Oxygen Flow Rate FIO2% 70 70 70 05/15/23 03:00 05/15/23 02:39 05/15/23 04:00 Temperature Pulse Rate Pulse Rate [Right Brachial] 87 Respiratory Rate 28 H 28 H 28 H Blood Pressure Blood Pressure [Right Calf] 121/54 O2 Sat by Pulse Oximetry 98 Oxygen Delivery Method Mechanical Ventilator Oxygen Flow Rate FIO2% 70 70 70 05/15/23 04:00 05/15/23 05:00 05/15/23 06:00 Temperature 99.1 F Pulse Rate Pulse Rate [Right Brachial] 87 88 Respiratory Rate 27 H 23 28 H Blood Pressure Blood Pressure [Right Calf] 124/56 120/54 O2 Sat by Pulse Oximetry 98 95 Oxygen Delivery Method Mechanical Ventilator Mechanical Ventilator Oxygen Flow Rate FIO2% 70 70 70 05/15/23 06:00 05/15/23 07:00 05/15/23 07:00 Temperature Pulse Rate Pulse Rate [Right Brachial] 87 Respiratory Rate 28 H Blood Pressure Blood Pressure [Right Calf] 113/51 O2 Sat by Pulse Oximetry 96 Oxygen Delivery Method Mechanical Ventilator Mechanical Ventilator Oxygen Flow Rate FIO2% 70 70 70 05/15/23 07:00 05/15/23 08:00 05/15/23 08:00 Temperature 98.7 F Pulse Rate Pulse Rate [Right Brachial] 88 87 Respiratory Rate 24 25 H 25 H Blood Pressure Blood Pressure [Right Calf] 98/57 105/55 O2 Sat by Pulse Oximetry 92 L 88 L Oxygen Delivery Method Mechanical Ventilator Mechanical Ventilator Oxygen Flow Rate FIO2% 70 70 70 05/15/23 09:00 05/15/23 08:40 05/15/23 11:20 Temperature Pulse Rate 82 Pulse Rate [Right Brachial] 88 Respiratory Rate 26 H 25 H Blood Pressure Blood Pressure [Right Calf] 101/54 O2 Sat by Pulse Oximetry 97 97 Oxygen Delivery Method Mechanical Ventilator Oxygen Flow Rate FIO2% 70 70 05/15/23 12:54 05/15/23 10:00 05/15/23 12:00 Temperature Pulse Rate Pulse Rate [Right Brachial] Respiratory Rate 24 25 H 23 Blood Pressure Blood Pressure [Right Calf] O2 Sat by Pulse Oximetry Oxygen Delivery Method Oxygen Flow Rate FIO2% 70 70 70 05/15/23 13:55 05/15/23 10:00 05/15/23 11:00 Temperature Pulse Rate Pulse Rate [Right Brachial] 88 88 Respiratory Rate 24 25 H 24 Blood Pressure Blood Pressure [Right Calf] 101/52 93/54 O2 Sat by Pulse Oximetry 95 94 L Oxygen Delivery Method Mechanical Ventilator Mechanical Ventilator Oxygen Flow Rate FIO2% 70 70 70 05/15/23 12:00 05/15/23 13:00 05/15/23 11:50 Temperature 98.6 F Pulse Rate Pulse Rate [Right Brachial] 87 87 Respiratory Rate 23 24 24 Blood Pressure Blood Pressure [Right Calf] 90/53 90/52 O2 Sat by Pulse Oximetry 96 96 Oxygen Delivery Method Mechanical Ventilator Mechanical Ventilator Oxygen Flow Rate FIO2% 70 70 70 05/15/23 13:40 05/15/23 14:00 05/15/23 15:00 Temperature 98.0 F Pulse Rate 87 Pulse Rate [Right Brachial] 87 86 Respiratory Rate 24 24 Blood Pressure Blood Pressure [Right Calf] 93/48 93/53 O2 Sat by Pulse Oximetry 96 95 94 L Oxygen Delivery Method Mechanical Ventilator Mechanical Ventilator Oxygen Flow Rate FIO2% 70 70 05/15/23 16:00 05/15/23 16:00 05/15/23 17:00 Temperature Pulse Rate Pulse Rate [Right Brachial] 84 Respiratory Rate 23 23 26 H Blood Pressure Blood Pressure [Right Calf] 95/46 92/43 O2 Sat by Pulse Oximetry 95 95 Oxygen Delivery Method Mechanical Ventilator Mechanical Ventilator Oxygen Flow Rate FIO2% 70 70 70 05/15/23 17:30 Temperature Pulse Rate 84 Pulse Rate [Right Brachial] Respiratory Rate Blood Pressure Blood Pressure [Right Calf] O2 Sat by Pulse Oximetry 96 Oxygen Delivery Method Oxygen Flow Rate FIO2% Labs: Laboratory Last Values WBC 6.3 X10^3/uL (3.6-10.0) 05/15/23 04:20 RBC 3.05 X10^6/uL (4.7-6.0) L 05/15/23 04:20 Hgb 9.0 g/dL (13.5-18.0) L 05/15/23 04:20 Hct 26.9 % (42.0-54.0) L 05/15/23 04:20 MCV 88.3 fL (80.0-100.0) 05/15/23 04:20 MCH 29.5 pg (27.0-34.0) 05/15/23 04:20 MCHC 33.4 g/dL (33.0-35.0) 05/15/23 04:20 RDW 17.4 % (11.6-16.5) H 05/15/23 04:20 Plt Count 135 X10^3/uL (150.0-450.0) L 05/15/23 04:20 MPV 9.7 fL (7.4-11.0) 05/15/23 04:20 Neut % (Auto) 85.4 % (42.0-75.0) H 05/15/23 04:20 Lymph % (Auto) 9.9 % (21.0-51.0) L 05/15/23 04:20 [place] % (Auto) 3.2 % (0.0-13.0) 05/15/23 04:20 Eos % (Auto) 1.3 % (0.9-2.9) 05/15/23 04:20 Baso % (Auto) 0.2 % (0.2-1.0) 05/15/23 04:20 Neut # (Auto) 5.3 x10^3/uL (2.2-4.8) H 05/15/23 04:20 Lymph # (Auto) 0.6 X10^3/uL (1.3-2.9) L 05/15/23 04:20 [place] # (Auto) 0.2 x10^3/uL (0.3-0.8) L 05/15/23 04:20 Eos # (Auto) 0.1 x10^3/uL (0.0-0.2) 05/15/23 04:20 Baso # (Auto) 0.0 X10^3/uL (0.0-0.1) 05/15/23 04:20 Absolute Nucleated RBC 0.0 /100WBC 05/15/23 04:20 Sample Site Rr 05/15/23 04:05 ABG pH 7.450 (7.35-7.45) 05/15/23 04:05 ABG pCO2 33.0 mmHg (35.0-45.0) L 05/15/23 04:05 ABG pO2 68.0 mmHg (80.0-100.0) L 05/15/23 04:05 ABG HCO3 22.9 mmol/L (22-26) 05/15/23 04:05 ABG O2 Saturation 94.0 % (90-100) 05/15/23 04:05 ABG Base Excess -0.5 mmol/L (-2.0-2.0) 05/15/23 04:05 Richie Test Pos 05/15/23 04:05 A-a Gradient 390.0 mmHg 05/15/23 04:05 FiO2 70.0 05/15/23 04:05 Blood Gas Comments Jaya well ae 05/15/23 04:05 Sodium 135 mmol/L (136-145) L 05/15/23 04:20 Corrected Sodium TNP 05/15/23 04:20 Potassium 4.4 mmol/L (3.5-5.1) 05/15/23 04:20 Chloride 103 mmol/L (98-107) 05/15/23 04:20 Carbon Dioxide 22.4 mmol/L (21-32) 05/15/23 04:20 BUN 36 mg/dL (7-18) H 05/15/23 04:20 Creatinine 3.02 mg/dL (0.70-1.30) H 05/15/23 04:20 Est GFR (MDRD) Af Amer 27 (>60) L 05/15/23 04:20 Est GFR (MDRD) Non-Af 22 (>60) L 05/15/23 04:20 Glucose 88 mg/dL (65-99) 05/15/23 04:20 Lactic Acid 1.6 mmol/L (0.4-2.0) 05/14/23 10:50 Calcium 7.8 mg/dL (8.5-10.1) L 05/15/23 04:20 Corrected Calcium 10.0 mg/dL (8.5-10.1) 05/15/23 04:20 Total Bilirubin 0.80 mg/dL (0.2-1.0) 05/15/23 04:20 AST 39 Units/L (15-37) H 05/15/23 04:20 ALT 10 Units/L (12-78) L 05/15/23 04:20 Alkaline Phosphatase 61 Units/L (46-116) 05/15/23 04:20 Creatine Kinase 112 Units/L (39-308) 05/13/23 04:45 Troponin I High Sens 114.2 ng/L (4.0-60.0) H* 05/14/23 16:20 Total Protein 6.4 g/dL (6.4-8.2) 05/15/23 04:20 Albumin 1.2 g/dL (3.4-5.0) L 05/15/23 04:20 Globulin 5.2 g/dL (2.5-4.5) H 05/15/23 04:20 Albumin/Globulin Ratio 0.2 Ratio (1.1-2.1) L 05/15/23 04:20 Resp Viral Panel (PCR) See scanned report 05/14/23 09:09 SARS CoV-2 RNA Rapid LEONARDO Negative (NEGATIVE) 05/15/23 09:40 Blood Type A POSITIVE 05/13/23 08:35 Antibody Screen Negative 05/13/23 08:35 Crossmatch See Detail 05/13/23 08:35 Reason For Visit: ENDOCARDITIS, AORTIC VALVE VEGETATION Discharge Date Discharge Date: 05/15/23 Discharge Diagnosis All Active Problems (Updated 05/03/23 @ 15:07 by Atilio Morales) Endocarditis determined by echocardiography (Acute) Hypoalbuminemia (Acute) Anemia (Acute) Acute urinary retention (Acute) Cystitis (Acute) Leukocytosis (Acute) JANE (acute kidney injury) (Acute) Ankle pain, left (Acute) Acute pancreatitis (Acute) Acute urinary tract infection (Acute) Prostate cancer (Acute) Suprapubic catheter (Acute) Nausea & vomiting (Acute) UTI (urinary tract infection) (Acute) Suprapubic catheter dysfunction (Acute) Suprapubic catheter dysfunction (Acute) Acute urinary retention (Acute) Benign prostatic hyperplasia (Acute) Hydronephrosis (Acute) Malignant hypertension (Acute) Blocked suprapubic catheter (Acute) D-dimer, elevated (Acute) Hypokalemia (Acute) Rhinosinusitis (Acute) Encounter for monitoring opioid maintenance therapy (Acute) Neuropathy (Acute) Leg pain, left (Acute) History of non-ST elevation myocardial infarction (NSTEMI) (Acute) Altered mental status (Acute) Bilateral leg weakness (Acute) Opiate or related narcotic overdose (Acute) Colon cancer screening (Acute) Pain, arm, left (Acute) History of CVA (cerebrovascular accident) (Acute) Plan of Treatment: Continue with present treatment and follow up plan. Pt is to keep follow up appointment as instructed and take medications as ordered. 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 He was transferred to [facility] last week and was evaluated and decision was made to not pursue any surgical intervention of aortic valve at that time and to receive IV daptomycin for 6 weeks. He was transferred back to [facility] on 05/11/23. Yesterday, patients health acutely declined and he had acute respiratory failure with CT of chest revealing severe bilateral pneumonia. He was intubated and is currently on the ventilator. His ABG this morning: pH 7.45, pCO2 33, pO2 68, HCO3 22, FiO2 70%. Added IV antibiotics: Zosyn. Pt will be transferred to higher level care facility, [facility] in [place], [place] for further treatment. Critical care time spent 30-74 minutes in clinical assessment, reviewing labs/imaging, decision making, and documentation. Patient Disposition: XF [id number] HOSP Condition: Stable Health Concerns: Post Hospitalization: new medications and changes needed to prevent readmission or further decline. Pt educated and given instructions on all concerns. Care Plan Goals: Problem: Infection Goal: Temperature within normal limits. Resolved infection. Instructions: Follow provided instructions. Follow up with primary physician as directed. Contact primary care physician or report to the closest Emergency Room if condition worsens. Plan of Treatment: Continue with present treatment and follow up plan. Pt is to keep follow up appointment as instructed and take medications as ordered. Prescriptions: No Action carvedilol 25 mg tablet 25 mg PO BID 30 Days Qty: 60 3RF pregabalin 150 mg capsule 150 mg PO BID 30 Days Qty: 60 0RF atorvastatin 20 mg Tablet 20 mg PO HS oxycodone-acetaminophen [Percocet] 10-325 mg tablet 1 tab PO Q6H PRN (Reason: pain) Orders to Discharge Patient Discharge Orders: Discharge by Transfer to Outside Facility (Routine); Ordered 05/15/23 Ordered By: Lonnie Pool Follow ups/Referrals Follow ups/Referrals: Lonnie Pool [Primary Care Provider] - 1 WEEK Instructions Instructions: Fall Prevention in the Home, Adult, [id number], PICC Home Care Guide, Endocarditis
== END 2023-05-15 19:45 | disposition short-term general hospital (02) | DRG 306 ==
LOC: MED/SURG 21:14 → ICU 05-14 12:25
PROVIDERS: ADMIT Obstetrics & Gynecology Obstetrics; ATTEND Family Medicine
DX: N30.90 Cystitis, unspecified without hematuria; R78.81 Bacteremia; R77.8 Other specified abnormalities of plasma proteins; R26.89 Other abnormalities of gait and mobility; R06.02 Shortness of breath; Z20.822 Contact with and (suspected) exposure to COVID-19; G81.94 Hemiplegia, unspecified affecting left nondominant side; I38 Endocarditis, valve unspecified; R09.2 Respiratory arrest; I25.2 Old myocardial infarction; Z85.49 Personal history of malignant neoplasm of other male genital organs; D64.89 Other specified anemias; Z86.73 Personal history of transient ischemic attack (TIA), and cerebral infarction without residual deficits

== ENCOUNTER 2023-05-27 12:31 | Inpatient (IN) ==
[2023-05-27] MEDS ORDERED: PHENERGAN SUPP 25 MG PR PRN (18:14)
[2023-05-27] MEDS: MORPHINE SULFATE INJ 2 MG INJ IVP PRN (20:15)
[2023-05-27] MEDS: ATIVAN INJ 2 MG VIAL IVP PRN (20:15)
[2023-05-29] MEDS: MORPHINE SULFATE INJ 2 MG INJ IVP SCH (10:28)
[2023-05-29] MEDS: ATIVAN INJ 2 MG VIAL IVP SCH (10:28)
--- NOTE | 2023-05-29 10:28 | DR.H&P ---
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 He was receiving IV daptomycin but then developed bilateral pneumonia. He was transferred to [facility] in [place], [place] after developing acute respiratory failure and requiring mechanical ventilation. Patient was treated there but with poor prognosis. Family along with the physicians there decided to pursue with comfort care measures. He was transferred back over to [facility] under hospice care. Will put in orders for medications for end-of-life care. Hospice is following patient. Will continue with current measures. Past Medical History Past Medical History: Asthma, CVA, Hypertension and Kidney Stones Past Surgical History Surgical History: Appendectomy and Cholecystectomy Family History Family Medical History: Hypertension Medications Home Medications: Home Medications Medication Instructions Recorded Confirmed Type atorvastatin 20 mg tablet 20 mg PO HS 05/11/23 05/11/23 History oxycodone-acetaminophen 10 mg-325 1 tab PO Q6H PRN pain 05/11/23 05/11/23 History mg tablet (Percocet) Review of Systems Constitutional: Other (Unable to test) Eyes: Other ENT: Other Respiratory: Other Cardiovascular: Other Gastrointestinal: Other Genitourinary: Other Musculoskeletal: Other Skin: Other Neurological: Other Physical Exam Vital Signs: Vital Signs Temperature 101.5 F Pulse Rate 112 Pulse Rate 117 Pulse Rate 111 Pulse Rate 112 Pulse Rate 113 Pulse Rate 113 Pulse Rate 114 Pulse Rate 115 Pulse Rate 115 Pulse Rate 116 Pulse Rate 115 Pulse Rate 116 Pulse Rate 116 Pulse Rate 116 Pulse Rate 116 Pulse Rate 116 Pulse Rate 118 Pulse Rate 118 Pulse Rate 117 Pulse Rate 118 Pulse Rate 118 Pulse Rate 118 Pulse Rate 119 Pulse Rate 119 Pulse Rate 118 Pulse Rate 121 Pulse Rate 115 Pulse Rate 116 Pulse Rate 116 Pulse Rate 118 Pulse Rate 117 Pulse Rate 118 Pulse Rate 116 Pulse Rate 109 Pulse Rate 112 Pulse Rate 111 Pulse Rate 110 Pulse Rate 113 Pulse Rate 111 Pulse Rate 110 Pulse Rate 110 Pulse Rate 112 Pulse Rate 110 Pulse Rate 114 Pulse Rate 116 Pulse Rate 111 Pulse Rate 117 Pulse Rate 115 Pulse Rate 110 Pulse Rate 110 Pulse Rate 109 Pulse Rate 110 Pulse Rate 109 Pulse Rate 110 Pulse Rate 109 Pulse Rate 109 Pulse Rate 109 Pulse Rate 113 Pulse Rate 108 Pulse Rate 107 Pulse Rate 108 Pulse Rate 107 Pulse Rate 108 Pulse Rate 108 Pulse Rate 109 Pulse Rate 109 Pulse Rate 109 Pulse Rate 109 Pulse Rate 109 Pulse Rate 110 Pulse Rate 111 Pulse Rate 112 Pulse Rate 76 Pulse Rate 112 Pulse Rate 106 Pulse Rate 108 Pulse Rate 108 Pulse Rate 109 Pulse Rate 106 Pulse Rate 106 Pulse Rate 107 Pulse Rate 105 Pulse Rate 105 Respiratory Rate 13 Respiratory Rate 46 Respiratory Rate 18 Respiratory Rate 41 Respiratory Rate 43 Respiratory Rate 45 Respiratory Rate 45 Respiratory Rate 18 Respiratory Rate 18 Blood Pressure 136/64 Blood Pressure 122/58 Blood Pressure 120/58 Blood Pressure 125/60 Blood Pressure 126/60 Blood Pressure 128/61 Blood Pressure 126/60 Blood Pressure 129/58 Blood Pressure 133/61 Blood Pressure 131/62 Blood Pressure 129/62 Blood Pressure 125/60 Blood Pressure 129/63 Blood Pressure 128/62 Blood Pressure 129/59 Blood Pressure 130/61 Blood Pressure 134/62 Blood Pressure 133/60 Blood Pressure 131/59 Blood Pressure 132/62 Blood Pressure 133/63 Blood Pressure 135/63 Blood Pressure 131/60 Blood Pressure 133/60 Blood Pressure 133/60 Blood Pressure 133/60 Blood Pressure 177/64 Blood Pressure 118/58 Blood Pressure 117/56 Blood Pressure 123/60 Blood Pressure 121/60 Blood Pressure 121/58 Blood Pressure 125/61 Blood Pressure 131/57 Blood Pressure 129/61 Blood Pressure 127/60 Blood Pressure 131/58 Blood Pressure 132/61 Blood Pressure 125/62 Blood Pressure 130/61 Blood Pressure 128/61 Blood Pressure 130/61 Blood Pressure 125/58 Blood Pressure 123/60 Blood Pressure 127/61 Blood Pressure 125/60 Blood Pressure 122/60 Blood Pressure 121/60 Blood Pressure 120/56 Blood Pressure 119/58 Blood Pressure 118/56 Blood Pressure 118/56 Blood Pressure 122/60 Blood Pressure 119/58 Blood Pressure 119/58 Blood Pressure 119/58 Blood Pressure 119/58 Blood Pressure 119/58 Blood Pressure 117/56 Blood Pressure 119/58 Blood Pressure 119/57 Blood Pressure 124/58 Blood Pressure 125/60 Blood Pressure 126/60 Blood Pressure 128/59 Blood Pressure 130/62 Blood Pressure 127/60 Blood Pressure 129/63 Blood Pressure 130/60 Blood Pressure 124/57 Blood Pressure 132/60 Blood Pressure 129/57 Blood Pressure 131/59 Blood Pressure 128/61 Blood Pressure 129/59 Blood Pressure 125/59 Blood Pressure 124/58 Blood Pressure 121/57 Blood Pressure 121/57 Blood Pressure 121/57 Blood Pressure 122/57 Blood Pressure 122/57 Blood Pressure 122/57 O2 Sat by Pulse Oximetry 92 O2 Sat by Pulse Oximetry 88 O2 Sat by Pulse Oximetry 90 O2 Sat by Pulse Oximetry 91 O2 Sat by Pulse Oximetry 91 O2 Sat by Pulse Oximetry 92 O2 Sat by Pulse Oximetry 91 O2 Sat by Pulse Oximetry 90 O2 Sat by Pulse Oximetry 90 O2 Sat by Pulse Oximetry 90 O2 Sat by Pulse Oximetry 89 O2 Sat by Pulse Oximetry 90 O2 Sat by Pulse Oximetry 89 O2 Sat by Pulse Oximetry 89 O2 Sat by Pulse Oximetry 89 O2 Sat by Pulse Oximetry 90 O2 Sat by Pulse Oximetry 88 O2 Sat by Pulse Oximetry 89 O2 Sat by Pulse Oximetry 89 O2 Sat by Pulse Oximetry 89 O2 Sat by Pulse Oximetry 88 O2 Sat by Pulse Oximetry 88 O2 Sat by Pulse Oximetry 88 O2 Sat by Pulse Oximetry 88 O2 Sat by Pulse Oximetry 87 O2 Sat by Pulse Oximetry 86 O2 Sat by Pulse Oximetry 88 O2 Sat by Pulse Oximetry 88 O2 Sat by Pulse Oximetry 88 O2 Sat by Pulse Oximetry 88 O2 Sat by Pulse Oximetry 88 O2 Sat by Pulse Oximetry 87 O2 Sat by Pulse Oximetry 87 O2 Sat by Pulse Oximetry 89 O2 Sat by Pulse Oximetry 88 O2 Sat by Pulse Oximetry 88 O2 Sat by Pulse Oximetry 88 O2 Sat by Pulse Oximetry 88 O2 Sat by Pulse Oximetry 88 O2 Sat by Pulse Oximetry 88 O2 Sat by Pulse Oximetry 89 O2 Sat by Pulse Oximetry 88 O2 Sat by Pulse Oximetry 88 O2 Sat by Pulse Oximetry 88 O2 Sat by Pulse Oximetry 88 O2 Sat by Pulse Oximetry 89 O2 Sat by Pulse Oximetry 88 O2 Sat by Pulse Oximetry 89 O2 Sat by Pulse Oximetry 89 O2 Sat by Pulse Oximetry 89 O2 Sat by Pulse Oximetry 90 O2 Sat by Pulse Oximetry 89 O2 Sat by Pulse Oximetry 90 O2 Sat by Pulse Oximetry 89 O2 Sat by Pulse Oximetry 89 O2 Sat by Pulse Oximetry 89 O2 Sat by Pulse Oximetry 89 O2 Sat by Pulse Oximetry 88 O2 Sat by Pulse Oximetry 88 O2 Sat by Pulse Oximetry 88 O2 Sat by Pulse Oximetry 88 O2 Sat by Pulse Oximetry 88 O2 Sat by Pulse Oximetry 88 O2 Sat by Pulse Oximetry 89 O2 Sat by Pulse Oximetry 89 O2 Sat by Pulse Oximetry 88 O2 Sat by Pulse Oximetry 88 O2 Sat by Pulse Oximetry 88 O2 Sat by Pulse Oximetry 87 O2 Sat by Pulse Oximetry 87 O2 Sat by Pulse Oximetry 86 O2 Sat by Pulse Oximetry 85 O2 Sat by Pulse Oximetry 88 O2 Sat by Pulse Oximetry 88 O2 Sat by Pulse Oximetry 89 O2 Sat by Pulse Oximetry 90 O2 Sat by Pulse Oximetry 90 O2 Sat by Pulse Oximetry 91 O2 Sat by Pulse Oximetry 91 O2 Sat by Pulse Oximetry 90 O2 Sat by Pulse Oximetry 90 O2 Sat by Pulse Oximetry 90 O2 Sat by Pulse Oximetry 90 Oriented: Unable to test (non-arousable) Eyes: Other (dilated) Ear: Normal Nose: Normal Respiratory: Diminished Throughout and Rhonchi Throughout Cardiovascular: Tachycardia Auscultation: Bowel Sounds: Normal Skin: Normal Assessment/Plan (1) End of life care: Narrative Support Text: Hospice following End of life/comfort measures ordered Status: Acute (2) Respiratory failure: Status: Acute (3) Endocarditis determined by echocardiography: Status: Acute Review H&P Reviewed: Yes Patient was examined?: Yes
--- NOTE | 2023-05-29 11:23 | PCM.PROG ---
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 He was transferred to [facility] in [place], [place] after developing acute respiratory failure and requiring mechanical ventilation. Patient was treated there but health continued to decline with poor prognosis. Family along with the physicians decided to pursue with hospice and end of life care. He is currently under hospice care. Comfort care measures and medications for end-of-life care have been implemented. Hospice is following patient. Will continue with current treatment plan. Past Medical Family Social History Allergies: Allergies No Known Allergies Allergy (Verified 03/28/23 21:27) Review of Systems ROS changes noted: see HPI Vital Signs and I&O's Vital Signs: Vital Signs Temperature 99.3 F Pulse Rate 127 Pulse Rate 124 Pulse Rate 124 Respiratory Rate 36 Respiratory Rate 45 Respiratory Rate 41 Respiratory Rate 44 Blood Pressure 135/60 Blood Pressure 142/63 Blood Pressure 150/66 O2 Sat by Pulse Oximetry 94 O2 Sat by Pulse Oximetry 91 O2 Sat by Pulse Oximetry 91 Intake and Output: Intake & Output 05/26/23 05/27/23 05/28/23 05/29/23 23:59 23:59 23:59 23:59 Intake Total 50 / 50 70 / 70 10 / 10 Output Total 800 / 800 150 / 150 Balance 50 / 50 -730 / -730 -140 / -140 Physical Exam Oriented: Unable to test (non-arousable) Eyes: Other (dilated) Ear: Normal Nose: Normal Cardiovascular: Tachycardia Auscultation: Bowel Sounds: Normal Skin: Normal Speech Pattern: Aphasic Plan (1) End of life care: Status: Acute (2) Respiratory failure: Status: Acute (3) Endocarditis determined by echocardiography: Status: Acute
[2023-05-29] MEDS: VALIUM INJ IVP SCH (14:30)
[2023-05-30] MEDS: LEVSIN ORAL DROPS PO PRN (02:06)
[2023-05-30] MEDS: MORPHINE SULFATE ORAL SOLN CONC PO PRN ×3 (07:55→20:26)
[2023-05-30] MEDS: ISOPTO ATROPINE SL PRN (15:03)
[2023-05-30] MEDS ORDERED: PATIENT'S HOME MEDICATION SL PRN ×2 (18:50→18:58)
[2023-05-31] MEDS: TYLENOL SUPP 650 MG PR PRN (05:43)
--- NOTE | 2023-05-31 10:00 | PCM.PROG ---
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 He was transferred to [facility] in [place], [place] after developing acute respiratory failure and requiring mechanical ventilation. Patient was treated there but health continued to decline with poor prognosis. Family along with the physicians decided to pursue with hospice and end of life care and was palliatively extubated. He is currently under hospice care. Comfort care measures and medications for end-of-life care have been implemented. Hospice is following patient. Continue with current plan of care. Past Medical Family Social History Allergies: Allergies No Known Allergies Allergy (Verified 03/28/23 21:27) Review of Systems ROS changes noted: see HPI Vital Signs and I&O's Vital Signs: Vital Signs Temperature 99.9 F Temperature 100.5 F Temperature 101 F Temperature 100.7 F Pulse Rate 109 Pulse Rate 112 Pulse Rate 115 Pulse Rate 112 Pulse Rate 112 Pulse Rate 113 Pulse Rate 114 Respiratory Rate 27 Respiratory Rate 30 Respiratory Rate 14 Respiratory Rate 20 Respiratory Rate 14 Respiratory Rate 38 Respiratory Rate 32 Respiratory Rate 41 Respiratory Rate 13 Blood Pressure 110/51 Blood Pressure 121/57 Blood Pressure 124/58 Blood Pressure 117/57 Blood Pressure 120/58 Blood Pressure 118/58 Blood Pressure 122/58 O2 Sat by Pulse Oximetry 90 O2 Sat by Pulse Oximetry 90 O2 Sat by Pulse Oximetry 90 O2 Sat by Pulse Oximetry 90 O2 Sat by Pulse Oximetry 89 O2 Sat by Pulse Oximetry 87 O2 Sat by Pulse Oximetry 88 Intake and Output: Intake & Output 05/28/23 05/29/23 05/30/23 05/31/23 23:59 23:59 23:59 23:59 Intake Total 70 / 70 210 / 210 60 / 60 0 / 0 Output Total 800 / 800 220 / 220 Balance -730 / -730 -10 / -10 60 / 60 0 / 0 Physical Exam Oriented: Unable to test (non-arousable) Eyes: Other (dilated) Ear: Normal Nose: Normal Cardiovascular: Tachycardia Auscultation: Bowel Sounds: Normal Skin: Normal Speech Pattern: Aphasic and Unable to speak Plan (1) End of life care: Status: Acute (2) Respiratory failure: Status: Acute (3) Endocarditis determined by echocardiography: Status: Acute
--- NOTE | 2023-05-31 11:00 | PCM.PROG ---
Progress Note Progress Note for Day of Date of Exam: 05/31/23 Subjective Subjective: Patient seen at bedside, no acute events overnight. No family present at bedside. He is currently on inpatient hospice care due to poor prognosis. 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 He was transferred to [facility] in [place], [place] after developing acute respiratory failure and requiring mechanical ventilation. Patient was treated there but health continued to decline with poor prognosis. Family along with the physicians decided to pursue with hospice and end of life care and was palliatively extubated. Hospice is following patient. Continue with current plan of care. Past Medical Family Social History Allergies: Allergies No Known Allergies Allergy (Verified 03/28/23 21:27) Vital Signs and I&O's Vital Signs: Vital Signs Temperature 99.9 F Temperature 100.5 F Temperature 101 F Temperature 100.7 F Pulse Rate 104 Pulse Rate 105 Pulse Rate 106 Pulse Rate 105 Pulse Rate 107 Pulse Rate 108 Pulse Rate 112 Pulse Rate 110 Pulse Rate 109 Pulse Rate 109 Pulse Rate 113 Pulse Rate 111 Pulse Rate 112 Pulse Rate 117 Pulse Rate 112 Pulse Rate 112 Pulse Rate 112 Pulse Rate 114 Pulse Rate 117 Pulse Rate 115 Pulse Rate 121 Pulse Rate 120 Pulse Rate 111 Pulse Rate 112 Pulse Rate 112 Pulse Rate 113 Pulse Rate 112 Pulse Rate 115 Pulse Rate 112 Pulse Rate 112 Pulse Rate 112 Pulse Rate 113 Pulse Rate 113 Pulse Rate 113 Pulse Rate 113 Respiratory Rate 33 Respiratory Rate 32 Respiratory Rate 32 Respiratory Rate 31 Respiratory Rate 33 Respiratory Rate 31 Respiratory Rate 16 Respiratory Rate 35 Respiratory Rate 30 Respiratory Rate 27 Respiratory Rate 38 Respiratory Rate 32 Respiratory Rate 31 Respiratory Rate 26 Respiratory Rate 30 Respiratory Rate 34 Respiratory Rate 14 Respiratory Rate 32 Respiratory Rate 31 Respiratory Rate 13 Respiratory Rate 20 Respiratory Rate 19 Respiratory Rate 14 Respiratory Rate 43 Respiratory Rate 39 Respiratory Rate 38 Respiratory Rate 38 Respiratory Rate 35 Respiratory Rate 35 Respiratory Rate 36 Respiratory Rate 32 Respiratory Rate 32 Respiratory Rate 37 Respiratory Rate 36 Respiratory Rate 38 Respiratory Rate 33 Respiratory Rate 41 Blood Pressure 107/51 Blood Pressure 107/51 Blood Pressure 107/51 Blood Pressure 110/51 Blood Pressure 110/51 Blood Pressure 121/57 Blood Pressure 121/57 Blood Pressure 124/58 Blood Pressure 124/58 Blood Pressure 124/58 Blood Pressure 124/58 Blood Pressure 117/57 Blood Pressure 117/57 Blood Pressure 120/58 Blood Pressure 120/58 Blood Pressure 118/58 Blood Pressure 118/58 O2 Sat by Pulse Oximetry 92 O2 Sat by Pulse Oximetry 93 O2 Sat by Pulse Oximetry 93 O2 Sat by Pulse Oximetry 93 O2 Sat by Pulse Oximetry 91 O2 Sat by Pulse Oximetry 92 O2 Sat by Pulse Oximetry 89 O2 Sat by Pulse Oximetry 93 O2 Sat by Pulse Oximetry 91 O2 Sat by Pulse Oximetry 90 O2 Sat by Pulse Oximetry 92 O2 Sat by Pulse Oximetry 90 O2 Sat by Pulse Oximetry 90 O2 Sat by Pulse Oximetry 92 O2 Sat by Pulse Oximetry 90 O2 Sat by Pulse Oximetry 91 O2 Sat by Pulse Oximetry 91 O2 Sat by Pulse Oximetry 91 O2 Sat by Pulse Oximetry 90 O2 Sat by Pulse Oximetry 90 O2 Sat by Pulse Oximetry 86 O2 Sat by Pulse Oximetry 86 O2 Sat by Pulse Oximetry 88 O2 Sat by Pulse Oximetry 90 O2 Sat by Pulse Oximetry 90 O2 Sat by Pulse Oximetry 89 O2 Sat by Pulse Oximetry 89 O2 Sat by Pulse Oximetry 88 O2 Sat by Pulse Oximetry 89 O2 Sat by Pulse Oximetry 89 O2 Sat by Pulse Oximetry 89 O2 Sat by Pulse Oximetry 89 O2 Sat by Pulse Oximetry 86 O2 Sat by Pulse Oximetry 89 O2 Sat by Pulse Oximetry 87 Intake and Output: Intake & Output 05/28/23 05/29/23 05/30/23 05/31/23 23:59 23:59 23:59 23:59 Intake Total 70 / 70 210 / 210 60 / 60 0 / 0 Output Total 800 / 800 220 / 220 Balance -730 / -730 -10 / -10 60 / 60 0 / 0 Physical Exam Oriented: Unable to test (non-arousable) Eyes: Other (dilated) Ear: Normal Nose: Normal Cardiovascular: Tachycardia Auscultation: Bowel Sounds: Normal Skin: Normal Speech Pattern: Aphasic and Unable to speak Plan (1) End of life care: Status: Acute (2) Respiratory failure: Status: Acute (3) Endocarditis determined by echocardiography: Status: Acute
[2023-05-31] MEDS: ATIVAN PO PRN (12:48)
[2023-05-31 20:02] VITALS: TEMP 98.8
[2023-05-31 21:15] VITALS: BP 107/49; PULSE 106; RESP 27; O2SAT 96
== END 2023-05-31 21:25 | disposition hospice, home (50) | DRG 189 ==
LOC: ICU 15:27
PROVIDERS: ADMIT Family Medicine; ATTEND Family Medicine
DX: Z66 Do not resuscitate; R00.0 Tachycardia, unspecified; Z51.5 Encounter for palliative care; J96.90 Respiratory failure, unspecified, unspecified whether with hypoxia or hypercapnia; Z85.59 Personal history of malignant neoplasm of other urinary tract organ; Z86.73 Personal history of transient ischemic attack (TIA), and cerebral infarction without residual deficits; I38 Endocarditis, valve unspecified; I10 Essential (primary) hypertension